=== PATIENT | female | born 1990 | race Caucasian/White ===

== ENCOUNTER 2017-07-04 20:47 | Emergency (ER) | payer OTHER ==
[~2017-07-04] VITALS: Ht 170.2 cm; Wt 81.7 kg
[~2017-07-04 20:47] MED LIST: ACETAMINOPHEN-1 EAC1 PO; CEPHALEXIN500 MG PO; CLINDAMYCIN HC300 MG PO; IBUPROFEN800 MG PO; NAPROXEN500 MG PO; NORCO 5-325 TA1 EACH PO; PENICILLIN V P500 MG PO; PEPCID40 MG PO; PERCOCET 5-3251 EACH PO; PHENDIMETRAZIN105 MG PO; TRAZODONE HCL100 MG PO; VICODIN 5-3001 EACH PO; VITAFOL-OB+DHA1 EACH PO; WELLBUTRIN XL300 MG PO; ZOLOFT100 MG PO
[2017-07-04] MEDS ORDERED: DOXYCYCLINE HY100 MG PO (23:15)
== END 2017-07-04 23:33 | disposition home or self-care (01) ==
LOC: ED 20:47
DX: R51 Headache (principal); F41.9 Anxiety disorder, unspecified; F32.9 Major depressive disorder, single episode, unspecified; Z86.19 Personal history of other infectious and parasitic diseases; Z90.89 Acquired absence of other organs
CPT/HCPCS: 70450; 80053; 81001; 85025; 96372; 99284; J1885

== ENCOUNTER 2017-12-12 20:45 | Emergency (ER) | payer OTHER ==
[~2017-12-12] VITALS: Ht 170.2 cm; Wt 81.7 kg
--- OUTSIDE RECORDS SUMMARY | ~2017-12-12 | XMS | Encounter Summary ---
Demographics + + + | Address | [address] | | | [place] [address] | + + + | Home Phone | | + + + | Preferred Language | Unknown | + + + | Marital Status | | + + + | Tenriism Affiliation | Unknown | + + + | Race | White | + + + | Ethnic Group | Not or | + + + Author + + + | Author | [facility] | + + + | Organization | [facility] | + + + | Address | Unknown | + + + | Phone | Unavailable | + + + Support + + +---------+ + | Name | Relationship | Address | Phone | + + +---------+ + | Ortiz Laura | ECON | Unknown | | + + +---------+ + Care Team Providers + +------+ + | Care Tank Car Repairer Name | Role | Phone | + +------+ + | Donald Smith DO | PCP | | + +------+ + Encounter Details +--------+------+ + + + | Date | Type | Department | Care Team | Description | +--------+------+ + + + | 10/28/ | Lab | Laboratory, | | Chronic hepatitis C | | 2018 | | Specimen Collection | | without hepatic coma | | | | at [facility] 3rd Floor | | (HCC) | | | | [address] | | | | | | [facility] | | | | | | [place], [place] | | | | | | [address] | | | | | | [phone] | | | +--------+------+ + + + Social History + + + +--------+------+ | Tobacco Use | Types | Packs/Day | Years | Date | | | | | Used | | + + + +--------+------+ | Current Every Day | E-cigarettes | | | | | Smoker | | | | | + + + +--------+------+ + +---+---+---+ | Smokeless Tobacco: | | | | | Never Used | | | | + +---+---+---+ + + + | Sex Assigned at | Date Recorded | | | | + + + | Not on file | | + + + as of this encounter Plan of Treatment +--------+---------+ + + + | Date | Type | Specialty | Care Team | Description | +--------+---------+ + + + | 01/27/ | Office | Rheumatology | Sissy Peñaloza, | | | 2017 | Visit | | [facility] [address] [facility] | | | | | | [address] | | | | | | [place], [place] | | | | | | [address] | | | | | | [phone] | | | | | | | | +--------+---------+ + + + as of this encounter Results CBC AND AUTO DIFF (10/28/2017 9:40 AM) + + + + | Component | Value | Ref Range | + + + + | WHITE CELL COUNT | 4.22 | 3.50 - 10.80 K/cu mm | + + + + | RED CELL COUNT | 4.47 | 4.00 - 5.20 M/cu mm | + + + + | HEMOGLOBIN | 13.5 | 12.0 - 16.0 g/dL | + + + + | HEMATOCRIT | 39.6 | 36.0 - 46.0 % | + + + + | MCV | 88.6 | 80.0 - 96.0 fL | + + + + | MCHC | 34.1 | 33.0 - 35.5 g/dL | + + + + | RDW SD | 41.0 | 35.1 - 46.3 fL | + + + + | PLATELET COUNT | 147 (L) | 150 - 400 K/cu mm | + + + + | MPV | 11.4 | 9.7 - 12.3 fL | + + + + | NRBC% | 0.0 | 0.0 - 0.3 % | + + + + | NRBC# | 0.00 | 0.00 - 0.02 K/cu mm | + + + + | NEUTROPHIL % | 53.8 | 50.0 - 70.0 % | + + + + | LYMPHOCYTE % | 26.8 | 18.0 - 42.0 % | + + + + | MONOCYTE % | 12.3 (H) | 3.5 - 9.0 % | + + + + | EOS % | 6.2 (H) | 1.0 - 3.0 % | + + + + | BASO % | 0.7 | 0.0 - 2.0 % | + + + + | IG% | 0.2Comment: Increased immature granulocytes | 0.0 - 1.0 % | | | (IG) define a left shift. Immature | | | | granulocytes (IG) are an automated count of | | | | metamyelocytes, myelocytes and | | | | promyelocytes. Bands are not included in | | | | the IG count. Bands are included in the | | | | neutrophil count. | | + + + + | NEUTROPHIL # | 2.27 | 1.80 - 7.70 K/cu mm | + + + + | LYMPHOCYTE # | 1.13 | 1.00 - 4.80 K/cu mm | + + + + | MONOCYTE # | 0.52 | 0.10 - 0.90 K/cu mm | + + + + | EOS # | 0.26 | 0.00 - 0.50 K/cu mm | + + + + | BASO # | 0.03 | 0.00 - 0.10 K/cu mm | + + + + | IG# | 0.01 | 0.00 - 0.10 K/cu mm | + + + + + + + | Specimen | Performing Laboratory | + + + | Blood | [facility], CORE [address] [facility] | | | [place] [address] | + + + + + | Narrative | + + | New reference ranges for IG% and IG# effective 10/10/2017. Increased immature | | granulocytes (IG) define a left shift. Immature granulocytes (IG) are an automated count | | of metamyelocytes, myelocytes and promyelocytes. Bands are not included in the IG | | count. Bands are included in the neutrophil count. | + + SEDIMENTATION RATE (10/28/2017 9:40 AM) + +-------+ + | Component | Value | Ref Range | + +-------+ + | SEDIMENTATION RATE | 10 | 0 - 20 mm/hr | + +-------+ + + + + | Specimen | Performing Laboratory | + + + | Blood | [facility], CORE [address] [place] [address] | | | [place] [address] | + + + + + | Narrative | + + | Conditions such as cold agglutinins, anemia, hemolysis, icterus or lipemia may affect | | sedimentation rate. | + + COMPLETE METABOLIC SET (NA,K,CL,CO2,BUN,CREAT,GLUC,CA,AST,ALT,BILI TOTAL,ALK PHOS,ALB,PROT TOTAL) (10/28/2017 9:40 AM) + +---------+ + | Component | Value | Ref Range | + +---------+ + | GLUCOSE, PLASMA | 89 | 70 - 99 mg/dL | | (LAB) | | | + +---------+ + | BUN, PLASMA (LAB) | 16 | 6 - 20 mg/dL | + +---------+ + | CREATININE PLASMA | 0.73 | 0.60 - 1.10 mg/dL | | (LAB) | | | + +---------+ + | EGFR - | >60 | >60 mL/min | | [place] | | | + +---------+ + | EGFR NON | >60 | >60 mL/min | | -[place] | | | + +---------+ + | SODIUM, PLASMA (LAB) | 139 | 136 - 145 mmol/L | + +---------+ + | POTASSIUM, PLASMA | 3.9 | 3.4 - 5.0 mmol/L | | (LAB) | | | + +---------+ + | CHLORIDE, PLASMA | 107 | 97 - 108 mmol/L | | (LAB) | | | + +---------+ + | TOTAL CO2, PLASMA | 23 | 21 - 32 mmol/L | | (LAB) | | | + +---------+ + | CALCIUM, PLASMA | 8.6 | 8.6 - 10.2 mg/dL | | (LAB) | | | + +---------+ + | CALCIUM(ALB | 8.8 | 8.6 - 10.2 mg/dL | | CORRECTED) | | | + +---------+ + | BILIRUBIN TOTAL | 0.4 | 0.3 - 1.2 mg/dL | + +---------+ + | TOTAL PROTEIN, | 7.6 | 6.4 - 8.2 g/dL | | PLASMA (LAB) | | | + +---------+ + | ALBUMIN, PLASMA | 3.8 | 3.5 - 4.7 g/dL | | (LAB) | | | + +---------+ + | ALK PHOS | 46 | 42 - 98 U/L | + +---------+ + | AST(SGOT) | 14 | <=41 U/L | + +---------+ + | ALT (SGPT) | 20 | <=60 U/L | + +---------+ + | ANION GAP | 9 | 4 - 11 mmol/L | + +---------+ + | ANION GAP(ALB | 9 | 4 - 11 mmol/L | | CORRECTED) | | | + +---------+ + | POTASSIUM CMNT | No Hemo | | + +---------+ + | BILI T CMNT | No Hemo | | + +---------+ + | AST CMNT | No Hemo | | + +---------+ + + + + | Specimen | Performing Laboratory | + + + | Blood | [facility], [facility] [address] | | | [place] [address] | + + + + + | Narrative | + + | Adult glucose reference range change effective 7-12-17. GFR is estimated using the | | MDRD equation recommended by the National Kidney Disease Education Program. | | Estimated GFR Interpretive Information: <60 mL/min/1.73 sq | | m Chronic Kidney Disease <15 mL/min/1.73 sq | | m Kidney Failure Estimated GFR greater that 60 mL/min/1.73 | | sq m is of limited clinical value. The MDRD equation is not valid in the following | | situations: - Patients under 18 years of age - Severe malnutrition or obesity - | | Vegetarian diet - Rapidly changing kidney function | + + CBC, WITH DIFFERENTIAL (10/28/2017 9:40 AM) + + + | Specimen | Performing Laboratory | + + + | Blood | | + + + + + | Narrative | + + | The following orders were created for panel order CBC, WITH DIFFERENTIAL. | | Procedure | | Abnormality Status | | --------- | | ------ CBC AND AUTO | | DIFF[[id number]] Abnormal Final | | result Please view results for these tests on the | | individual orders. | + + in this encounter Visit Diagnoses + + | Diagnosis | + + | Chronic hepatitis C without hepatic coma (HCC) | + +"
--- OUTSIDE RECORDS SUMMARY | ~2017-12-12 | XMS | Encounter Summary ---
Demographics + + + | Address | [address] | | | [place] [address] | + + + | Home Phone | | + + + | Preferred Language | Unknown | + + + | Marital Status | | + + + | Taoism Affiliation | Unknown | + + + | Race | White | + + + | Ethnic Group | Not or | + + + Author + + + | Author | [facility] | + + + | Organization | [facility] | + + + | Address | Unknown | + + + | Phone | Unavailable | + + + Support + + +---------+ + | Name | Relationship | Address | Phone | + + +---------+ + | Ortiz Laura | ECON | Unknown | | + + +---------+ + Care Team Providers + +------+ + | Care Glass Enamel Mixer Name | Role | Phone | + +------+ + | Donald Smith DO | PCP | | + +------+ + Reason for Visit + + + | Reason | Comments | + + + | Follow-up visit | | + + + Benefits Check (Routine) + +--------+ + + + + | Status | Reason | Specialty | Diagnoses / | Referred By | Referred To | | | | | Procedures | Contact | Contact | + +--------+ + + + + | Pending | | Rheumatology | Procedures | Rhm | Rhm Faculty | | Review | | | [place] | Faculty Ppv | Ppv [address] | | | | | OFFICE/OUTPT | [address] | | | | | | [address] | [address] | | | | | VISIT[place] | [address] | Mailcode: | | | | | [place] | Mailcode: | OP09 | | | | | OFFICE/OUTPT | OP09 | Physicians | | | | | | Physicians | Pavilion, 4th | | | | | VISIT,EST,LE | Pavilion, | Floor | | | | | VL IV | 4th Floor | [place], [place] | | | | | | [place], [place] | [address] | | | | | | [address] | Phone: | | | | | | Phone: | [phone] | | | | | | [phone] | Fax: | | | | | | Fax: | [phone] | | | | | | [phone] | | + +--------+ + + + + Encounter Details +--------+---------+ + + + | Date | Type | Department | Care Team | Description | +--------+---------+ + + + | 10/28/ | Office | Rheumatology at | Sissy Peñaloza, | Chronic hepatitis C | | 2018 | Visit | [facility] [address] | [facility] [address] | without hepatic coma | | | | [facility] [address] | [facility] [address] | (HCC) | | | | Mailcode: [id number] | [place], [place] | | | | | [facility] [address] | [address] | | | | | [place], [place] | [phone] | | | | | [address] | | | | | | [phone] | | | +--------+---------+ + + + Social History + + [...] + + + as of this encounter Last Filed Vital Signs + + + + | Vital Sign | Reading | Time Taken | + + + + | Blood Pressure | 124/67 | 10/28/2017 9:07 AM PST | + + + + | Pulse | 78 | 10/28/2017 9:07 AM PST | + + + + | Temperature | - | - | + + + + | Respiratory Rate | - | - | + + + + | Oxygen Saturation | - | - | + + + + | Inhaled Oxygen | - | - | | Concentration | | | + + + + | Weight | 81.6 kg (180 lb) | 10/28/2017 9:07 AM PST | + + + + | Height | 170.2 cm (5' 7") | 10/28/2017 9:07 AM PST | + + + + | Body Mass Index | 28.19 | 10/28/2017 9:07 AM PST | + + + + in this encounter Progress Notes Sunshine Lopez MD - 10/28/2017 9:00 AM PSTI have evaluated the patient with Dr Peñaloza and agree with the history, findings, assessment and plan. Sunshine Lopez M.D. [address] [facility] Mailcode: [id number] [facility] [address] Sissy Peñaloza MBBS - 10/28/2017 9:00 AM PSTFormatting of this note may be different fro m the original. RHEUMATOLOGY FOLLOW UP CC: Polyarthritis: Hep C related. RF/CCP negative. HPI: This is a 27 y.o. female, here for follow up for hepatitis C and polyarthritis. Here morning stiffness and swelling are better after starting HCQ and naproxen. She can now make a fist in morning and feels much better. Although still has residual swelling. No fevers, chills, nausea, vomiting or diarrhea. ROS: General: No constitutional symptoms of fatigue, weakness, fevers, night sweats. Eyes: No changes in visual acuity, diplopia or amaurosis, no discharge, matting, redness, tearing or eye pain. Ears/Nose/Throat: No sore throat, dental pain, hoarseness, dysphagia, oral or tongue lesio ns. No history of hearing loss, ear pain, tinnitus or aural discharge. CVS: No chest pain, leg swelling, or palpitations. Respiratory: No shortness of breath, cough, or pain with breathing. Gastrointestinal: No abdominal or flank pain, anorexia, nausea or vomiting, dysphagia, angela nge in bowel habits or black or bloody stools or weight loss. Neurologic: No symptoms of neurological impairment or TIAs; no amaurosis, diplopia, dysphas ia, or unilateral disturbance of motor or sensory function. No loss of balance or vertigo. Heme/Lymphatic: No abnormal bruising, abnormal bleeding or enlarged lymph nodes. Skin: No rash. PMH: IV drug abuse, migraine, smoking, depression, opioid dependence Meds: Current Outpatient Prescriptions Medication Sig hydroxychloroquine 200 mg oral tablet Take 1.5 tablets by mouth once daily. naproxen 500 mg oral tablet Take 0.5 tablets by mouth two times daily. Indications: Tremayne n No current facility-administered medications for this visit. Allergies: Review of patient's allergies indicates not on file. Social History: Samantha reports that she has been smoking E-cigarettes. She has never use d smokeless tobacco. Vaccinations: There is no immunization history on file for this patient. FH: Father has psoriasis Rapid 3 MHAQ: 0 (10/28/17899) PAIN LEVEL: 4.5 (10/28/17899) GLOBAL ASSESSMENT: 4.5 (10/28/17899) RAPID 3: 3 (10/28/17899) Exam: Vital Signs: BP 124/67 | Pulse 78 | Ht 1.702 m (5' 7") | Wt 81.6 kg (180 lb) | BMI 28 .19 kg/(m^2) Pain Score: 8 Gen: Well nourished, well developed, in NAD HEENT: unremarkable Neck: no lymphadenopathy, FROM Lungs: clear to ausculations bilaterally CVS: S1, S2 RRR, no murmurs, rubs or gallops Abd: normal BS, soft, NT, ND Ext: No clubbing, cyanosis, or edema M/S: Right hand: 2nd /3rd PIP synovitis, ROM normal. Left hand: 2nd PIP synovitis, ROM normal. Left shoulder/elbow/feet: GH joint normal. Right shoulder/elbow/feet: normal. Skin: No ulcers, no periungual erythema Neuro: normal DAS28: Today Samantha's DAS28 assessment revealed a total of 3 tender and 3 swollen joints coupled with a recent ESR value of 10 mm/hr and a global health value of 45 mm. Based upon these da ta, Samantha's DAS28 was calculated as 3.7 (on a scale of 0-10). Therefore, her overall dise ase activity level is considered to be Moderate. Labs: Lab Results Component Value Date WBC 4.22 10/28/2017 HB 13.5 10/28/2017 HCT 39.6 10/28/2017 PLT 147 10/28/2017 MCV 88.6 10/28/2017 RDW 41.0 10/28/2017 Lab Results Component Value Date NA 139 10/28/2017 K 3.9 10/28/2017 CL 107 10/28/2017 BICARB 23 10/28/2017 BUN 16 10/28/2017 CR 0.73 10/28/2017 GLU 89 10/28/2017 CA 8.6 10/28/2017 AST 14 10/28/2017 ALT 20 10/28/2017 AP 46 10/28/2017 TBILI 0.4 10/28/2017 TP 7.6 10/28/2017 ALB 3.8 10/28/2017 ANIONGAP 9 10/28/2017 ANIONALBCOR 9 10/28/2017 Lab Results Component Value Date ESR 10 10/28/2017 Impression: This is a 27 y.o. female, here for evaluation of polyarthritis with a past [facility] history of chronic hepatitis C. Fells better after starting HCQ and naproxen. Continues to have morning stiffness for 1 hour and swelling of small joints in AM. Night pain has redu gabrielle. DAS28: Today Samantha's DAS28 assessment revealed a total of 3 tender and 3 swollen joints coupled with a recent ESR value of 10 mm/hr and a global health value of 45 mm. Based upon these da ta, Samantha's DAS28 was calculated as 3.7 (on a scale of 0-10). Therefore, her overall dise ase activity level is considered to be Moderate. Today she does have swelling in her PIP joints and so will increase dose of HCQ to 300 mg a day. Patient will get baseline eye exam. Will continue naproxen as needed. Will repeat labs today. I reviewed the patient s questionnaire which included more than 10 review of systems, ans wered all questions raised, and provided counseling and education. Recommendations: Labs: CBC, CMP, ESR today I will continue the patient on naproxen 500 mg twice a day (can take full dose or decrease if feels good) and increase plaquenil to 300 mg a day once a day for HCV arthritis See me back in 3 months. Case discussed and seen with Dr. Lopez who agrees with the plan. Plan discussed with primary team and patient - we answered all questions and concerns. JESSICA Dallas RHEUMATOLOGY AT [address] Mailcode: [id number] [place] [address] in this encounter Plan of Treatment +--------+---------+ + + + | Date | Type | Specialty | Care Team | Description | +--------+---------+ + + + | 01/27/ | Office | Rheumatology | Sissy Peñaloza, | | | 2017 | Visit | | [facility] [address] [facility] | | | | | | [address] | | | | | | [place], [place] | | | | | | [address] | | | | | | [phone] | | | | | | | | +--------+---------+ + + + as of this encounter Results SEDIMENTATION RATE (10/28/2017 9:40 AM) + +-------+ + | Component | Value | Ref Range | + +-------+ + | SEDIMENTATION RATE | 10 | 0 - 20 mm/hr | + +-------+ + + + + | Specimen | Performing Laboratory | + + + | Blood | [facility], CORE [address] [facility] | | | [place] [address] | + + + + + | [...] | >60 | >60 mL/min | | [place] | | | + +---------+ + | EGFR NON | >60 | >60 mL/min | | -[place] | | | + +---------+ + | [...] | + + + | Blood | [facility], [facility] [address] [facility] | | | [place] [address] | + + + + + | [...] | ------ CBC AND AUTO | | DIFF[[id number]] Abnormal Final | | result Please view results for these tests on the | | individual orders. | + + in this encounter Visit Diagnoses + + | Diagnosis | + + | Chronic hepatitis C without hepatic coma (HCC) | + +
--- OUTSIDE RECORDS SUMMARY | ~2017-12-12 | XMS | Encounter Summary ---
Demographics + + + | Address | [address] | | | [place] [address] | + + + | Home Phone | | + + + | Preferred Language | Unknown | + + + | Marital Status | | + + + | Gnosticism Affiliation | Unknown | + + + | Race | White | + + + | Ethnic Group | Not or | + + + Author + + + | Author | [facility] | + + + | Organization | [facility] | + + + | Address | Unknown | + + + | Phone | Unavailable | + + + Support + + +---------+ + | Name | Relationship | Address | Phone | + + +---------+ + | Ortiz Laura | ECON | Unknown | | + + +---------+ + Care Team Providers + +------+ + | Care Message And Delivery Service Pricer Name | Role | Phone | + [...] Faculty | | Review | | | [place] | Faculty Ppv | Ppv [address] | | | | | OFFICE/OUTPT | [address] | | | | | | [address] | [address] | | | | | VISIT,EST,[place] | [address] | Mailcode: | | | | | [place] | Mailcode: | OP09 | | | | | OFFICE/OUTPT | OP09 | Physicians | | | | | | Physicians | Pavilion, 4th | | | | | VISIT,EST,LE | Pavilion, | Floor | | | | | VL IV | 4th Floor | [place], [place] | | | | | | [place], [place] | [address] | | | | | | [address] | Phone: | | | | | | Phone: | [phone] | | | | | | [phone] | Fax: | | | | | | Fax: | [phone] | | | | | | [phone] | | + +--------+ + + + [...] without hepatic coma | | | | [facility] [address] | [facility] [address] | (HCC) | | | | Mailcode: [id number] | [place], [place] | | | | | [facility] [address] | [address] | | | | | [place], [place] | [phone] | | | | | [address] | | | | | | [phone] | | | +--------+---------+ + + + [...] findings, assessment and plan. Sunshine Lopez M.D. [address] [facility] Mailcode: [id number] [facility] [address] Sissy Peñaloza MBBS - 10/28/2017 9:00 AM [...] for evaluation of polyarthritis with a past [facility] history of chronic hepatitis C. Fells better [...] questions and concerns. JESSICA Dallas RHEUMATOLOGY AT [address] Mailcode: [id number] [place] [address] in this encounter Plan of Treatment +--------+---------+ + + + | Date | Type | Specialty | Care Team | Description | +--------+---------+ + + + | 01/27/ | Office | Rheumatology | Sissy Peñaloza, | | | 2017 | Visit | | [facility] [address] [facility] | | | | | | [address] | | | | | | [place], [place] | | | | | | [address] | | | | | | [phone] | | | | | | | [...] | + + + | Blood | [facility], CORE [address] [facility] [address] | | | [place] [address] | + + + + + | [...] | >60 | >60 mL/min | | [place] | | | + +---------+ + | EGFR NON | >60 | >60 mL/min | | -[place] | | | + +---------+ + | [...] | + + + | Blood | [facility], [facility] [address] | | | [place] [address] | + + + + + | [...] | ------ CBC AND AUTO | | DIFF[[id number]] Abnormal Final | | result Please view results for these tests on the | | individual orders. | + + in this encounter Visit Diagnoses + + | Diagnosis | + + | Chronic hepatitis C without hepatic coma (HCC) | + +
--- OUTSIDE RECORDS SUMMARY | ~2017-12-12 | XMS | Clinical Summary ---
Demographics + + + | Address | [address] | | | [place] [address] | + + + | Home Phone | | + + + | Preferred Language | Unknown | + + + | Marital Status | | + + + | Caodaism Affiliation | Unknown | + + + | Race | White | + + + | Ethnic Group | Not or | + + + Author + + + | Author | [facility] | + + + | Organization | [facility] | + + + | Address | Unknown | + + + | Phone | Unavailable | + + + Support + + +---------+ + | Name | Relationship | Address | Phone | + + +---------+ + | Ortiz Laura | ECON | Unknown | | + + +---------+ + Care Team Providers + +------+ + | Care Receptionist Name | Role | Phone | + +------+ + | Donald Smith DO | PP | | + +------+ + Source Comments ERIC is fully live on both [facility] and [facility] Allergies Not on File Current Medications + + +--------+---------+------+------+-------+ | Prescription | Sig. | Disp. | Refills | Star | End | Statu | | | | | | t | Date | s | | | | | | Date | | | + + +--------+---------+------+------+-------+ | hydroxychloroquine | Take 1.5 tablets by | 45 | 5 | 02/0 | | Activ | | 200 mg oral | mouth once daily. | tablet | | 820 | | e | | tabletIndications: | | | | 18 | | | | Chronic hepatitis C | | | | | | | | without hepatic coma | | | | | | | | (HCC) | | | | | | | + + +--------+---------+------+------+-------+ | naproxen 500 mg | Take 0.5 tablets by | 30 | 2 | 02/0 | | Activ | | oral | mouth two times | tablet | | 8/20 | | e | | tabletIndications: | daily. Indications: | | | 18 | | | | Pain | Pain | | | | | | + + +--------+---------+------+------+-------+ Active Problems Not on file Encounters +--------+---------+ + + + | Date | Type | Specialty | Care Team | Description | +--------+---------+ + + + | 10/28/ | Lab | | | Chronic hepatitis C | | 2018 | | | | without hepatic coma | | | | | | (HCC) | +--------+---------+ + + + | 10/28/ | Office | | Sissy Peñaloza, | Chronic hepatitis C | | 2018 | Visit | | [facility] | without hepatic coma | | | | | | (HCC) | +--------+---------+ + + + from Last 3 Months Social History + + + +--------+------+ | [...] on file | | + + + Last Filed Vital Signs + + + [...] AM PST | + + + + Plan of Treatment +--------+---------+ + + + | Date | Type | Specialty | Care Team | Description | +--------+---------+ + + + | 01/27/ | Office | | Sissy Peñaloza, | | | 2018 | Visit | | [facility] [address] [facility] | | | | | | [address] | | | | | | [place], [place] | | | | | | [address] | | | | | | [phone] | | | | | | | | +--------+---------+ + + + + + + + + | Health Maintenance | Due Date | Last Done | Comments | + + + + + | INFLUENZA VACCINE | | 06/30/2016, 07/02/2014, | | | (FLU SHOT) | 7 | 06/18/2009, Additional history | | | | | exists | | + + + + + Results CBC AND AUTO DIFF (10/28/2017 9:40 [...] | + + + | Blood | [facility], CORE [address] [place] [address] | | | [facility] [address] | + + + + + | [...] in the neutrophil count. | + + CBC, WITH DIFFERENTIAL (10/28/2017 [...] | ------ CBC AND AUTO | | DIFF[[id number]] Abnormal Final | | result Please view results for these tests on the | | individual orders. | + + COMPLETE METABOLIC SET (NA,K,CL,CO2,BUN,CREAT,GLUC,CA,AST,ALT,BILI [...] | >60 | >60 mL/min | | [place] | | | + +---------+ + | EGFR NON | >60 | >60 mL/min | | -[place] | | | + +---------+ + | [...] | + + + | Blood | [facility] [address] | | | [place] [address] | + + + + + | [...] Rapidly changing kidney function | + + SEDIMENTATION RATE (10/28/2017 9:40 AM) + +-------+ + | Component | Value | Ref Range | + +-------+ + | SEDIMENTATION RATE | 10 | 0 - 20 mm/hr | + +-------+ + + + + | Specimen | Performing Laboratory | + + + | Blood | [facility], CORE [address] | | | [place] [address] | + + + + + | Narrative | + + | Conditions such as cold agglutinins, anemia, hemolysis, icterus or lipemia may affect | | sedimentation rate. | + + from Last 3 Months
--- OUTSIDE RECORDS SUMMARY | ~2017-12-12 | XMS | Encounter Summary ---
Demographics + + + | Address | [address] | | | [place] [address] | + + + | Home Phone | | + + + | Preferred Language | Unknown | + + + | Marital Status | | + + + | Episcopal Affiliation | Unknown | + + + | Race | White | + + + | Ethnic Group | Not or | + + + Author + + + | Author | [facility] | + + + | Organization | [facility] | + + + | Address | Unknown | + + + | Phone | Unavailable | + + + Support + + +---------+ + | Name | Relationship | Address | Phone | + + +---------+ + | Ortiz Laura | ECON | Unknown | | + + +---------+ + Care Team Providers + +------+ + | Care Employee Representative Name | Role | Phone | + [...] hepatic coma | | | | at [facility] 3rd Floor | | (HCC) | | | | [address] | | | | | | [facility] | | | | | | [place], [place] | | | | | | [address] | | | | | | [phone] | | | +--------+------+ + + + [...] 2017 | Visit | | [facility] [address] [facility] | | | | | | [address] | | | | | | [place], [place] | | | | | | [address] | | | | | | [phone] | | | | | | | [...] | + + + | Blood | [facility], CORE [address] [facility] | | | [place] [address] | + + + + + | [...] | + + + | Blood | [facility], CORE [address] [place] [address] | | | [place] [address] | + + + + + | [...] | >60 | >60 mL/min | | [place] | | | + +---------+ + | EGFR NON | >60 | >60 mL/min | | -[place]APORE[place] | | | + +---------+ + | [...] | + + + | Blood | [facility] [address] | | | [place] [address] | + + + + + | [...] | ------ CBC AND AUTO | | DIFF[[id number]] Abnormal Final | | result Please view results for these tests on the | | individual orders. | + + in this encounter Visit Diagnoses + + | Diagnosis | + + | Chronic hepatitis C without hepatic coma (HCC) | + +"
--- OUTSIDE RECORDS SUMMARY | ~2017-12-12 | XMS | Clinical Summary ---
Demographics + + + | Address | [address] | | | [place] [address] | + + + | Home Phone | | + + + | Preferred Language | Unknown | + + + | Marital Status | | + + + | Moravian Affiliation | Unknown | + + + | Race | White | + + + | Ethnic Group | Not or | + + + Author + + + | Author | [facility] | + + + | Organization | [facility] | + + + | Address | Unknown | + + + | Phone | Unavailable | + + + Support + + +---------+ + | Name | Relationship | Address | Phone | + + +---------+ + | Ortiz Laura | ECON | Unknown | | + + +---------+ + Care Team Providers + +------+ + | Care Medical Management Trainer Name | Role | Phone | + +------+ + | Donald Smith DO | PP | | + +------+ + Source Comments [facility] and [facility] Allergies Not on File Current [...] 2018 | Visit | | [facility] [address] [facility] | | | | | | [address] | | | | | | [place], [place] | | | | | | [address] | | | | | | [phone] | | | | | | | [...] | + + + | Blood | [facility], CORE [address] [place] [address] | | | [facility] [address] | + + + + + | [...] | ------ CBC AND AUTO | | DIFF[[id number]] Abnormal Final | | result Please view [...] | >60 | >60 mL/min | | [place] | | | + +---------+ + | EGFR NON | >60 | >60 mL/min | | -[place] | | | + +---------+ + | [...] | + + + | Blood | [facility] [address] | | | [place] [address] | + + + + + | [...] | + + + | Blood | [facility], CORE [address] | | | [place] [address] | + + + + + | Narrative | + + | Conditions such as cold agglutinins, anemia, hemolysis, icterus or lipemia may affect | | sedimentation rate. | + + from Last 3 Months
[~2017-12-12 20:45] MED LIST changes: +DOXYCYCLINE HY100 MG PO
== END 2017-12-12 22:39 | disposition home or self-care (01) ==
LOC: ED 20:45
DX: R51 Headache (principal); F41.9 Anxiety disorder, unspecified; F32.9 Major depressive disorder, single episode, unspecified
CPT/HCPCS: 87502; 96374; 96375; 99283; J1200; J1885; J2765; J7030

== ENCOUNTER 2020-05-28 00:46 | Emergency (ER) | payer OTHER ==
[~2020-05-28] VITALS: Ht 170.2 cm; Wt 89.8 kg
--- OUTSIDE RECORDS SUMMARY | ~2020-05-28 | XMS | Encounter Summary ---
Demographics + + + | Address | [address] | | | [place] [address] | + + + | Home Phone | | + + + | Preferred Language | Unknown | + + + | Marital Status | | + + + | Sikh Affiliation | Unknown | + + + [...] Team Providers + +------+ + | Care Vending Machine Filler Name | Role | Phone | + +------+ + | Donald Smith DO | PCP | | + +------+ + Encounter Details +--------+------+ + + + | Date | Type | Department | Care Team | Description | +--------+------+ + + + | 07/22/ | Lab | Laboratory at [facility] | | Chronic hepatitis C | | 2017 | | [address] | | without hepatic coma | | | | [facility] | | (HCC) | | | | [place], 3rd floor | | | | | | [place], [place] | | | | | | [address] | | | | | | [phone] | | | +--------+------+ + + + [...] on file | | + + + documented as of this encounter Plan of Treatment Not on filedocumented as of this encounter Procedures + +--------+ + + + | Procedure Name | Priori | Date/Time | Associated Diagnosis | Comments | | | ty | | | | + +--------+ + + + | HEPATITIS B SURFACE | Routin | 07/22/2017 | Chronic hepatitis | Results for this | | AG W/REFLEX IF | e | 12:49 PM | C without hepatic | procedure are in the | | INDICATED | | PDT | coma (HCC) | results section. | + +--------+ + + + | CBC AND AUTO DIFF | Routin | 07/22/2017 | Chronic hepatitis | Results for this | | | e | 12:49 PM | C without hepatic | procedure are in the | | | | PDT | coma (HCC) | results section. | + +--------+ + + + | CBC, WITH | Routin | 07/22/2017 | Chronic hepatitis | Results for this | | DIFFERENTIAL | e | 12:49 PM | C without hepatic | procedure are in the | | | | PDT | coma (HCC) | results section. | + +--------+ + + + | COMPLETE METABOLIC | Routin | 07/22/2017 | Chronic hepatitis | Results for this | | SET | e | 12:49 PM | C without hepatic | procedure are in the | | (NA,K,CL,CO2,BUN,CRE | | PDT | coma (HCC) | results section. | | AT,GLUC,CA,AST,ALT,B | | | | | | RIVKA TOTAL,ALK | | | | | | PHOS,ALB,PROT TOTAL) | | | | | + +--------+ + + + | CYCLIC CITRUL | Routin | 07/22/2017 | Chronic hepatitis | Results for this | | PEPTIDE AB IGG, | e | 12:49 PM | C without hepatic | procedure are in the | | SERUM | | PDT | coma (HCC) | results section. | + +--------+ + + + | HIV AB/AG SCREENING | Routin | 07/22/2017 | Chronic hepatitis | Results for this | | W/REFLEX TO CONFIRM | e | 12:49 PM | C without hepatic | procedure are in the | | | | PDT | coma (HCC) | results section. | + +--------+ + + + documented in this encounter Results CBC AND AUTO DIFF (07/22/2017 12:49 PM PDT) + + + + + + | Component | Value | Ref Range | Performed | Pathologist | | | | | At | Signature | + + + + + + | WHITE CELL | 3.57 | 3.50 - 10.80 | [facility] | | | COUNT | | K/cu mm | LABORATORY | | | | | | SERVICES, | | | | | | CORE | | + + + + + + | RED CELL | 4.63 | 4.00 - 5.20 | [facility] | | | COUNT | | M/cu mm | LABORATORY | | | | | | SERVICES, | | | | | | CORE | | + + + + + + | HEMOGLOBIN | 14.0 | 12.0 - 16.0 | [facility] | | | | | g/dL | LABORATORY | | | | | | SERVICES, | | | | | | CORE | | + + + + + + | HEMATOCRIT | 41.0 | 36.0 - 46.0 % | [facility] | | | | | | LABORATORY | | | | | | SERVICES, | | | | | | CORE | | + + + + + + | MCV | 88.6 | 80.0 - 96.0 fL | [facility] | | | | | | LABORATORY | | | | | | SERVICES, | | | | | | CORE | | + + + + + + | MCHC | 34.1 | 33.0 - 35.5 | [facility] | | | | | g/dL | LABORATORY | | | | | | SERVICES, | | | | | | CORE | | + + + + + + | RDW SD | 42.3 | 35.1 - 46.3 fL | [facility] | | | | | | LABORATORY | | | | | | SERVICES, | | | | | | CORE | | + + + + + + | PLATELET | 135 (L) | 150 - 400 K/cu | [facility] | | | COUNT | | mm | LABORATORY | | | | | | SERVICES, | | | | | | CORE | | + + + + + + | MPV | 11.5 | 9.7 - 12.3 fL | [facility] | | | | | | LABORATORY | | | | | | SERVICES, | | | | | | CORE | | + + + + + + | NRBC% | 0.0 | 0.0 - 0.3 % | [facility] | | | | | | LABORATORY | | | | | | SERVICES, | | | | | | CORE | | + + + + + + | NRBC# | 0.00 | 0.00 - 0.02 | [facility] | | | | | K/cu mm | LABORATORY | | | | | | SERVICES, | | | | | | CORE | | + + + + + + | NEUTROPHIL | 52.6 | 50.0 - 70.0 % | [facility] | | | % | | | LABORATORY | | | | | | SERVICES, | | | | | | CORE | | + + + + + + | LYMPHOCYTE | 31.7 | 18.0 - 42.0 % | [facility] | | | % | | | LABORATORY | | | | | | SERVICES, | | | | | | CORE | | + + + + + + | MONOCYTE % | 9.8 (H) | 3.5 - 9.0 % | [facility] | | | | | | LABORATORY | | | | | | SERVICES, | | | | | | CORE | | + + + + + + | EOS % | 5.0 (H) | 1.0 - 3.0 % | [facility] | | | | | | LABORATORY | | | | | | SERVICES, | | | | | | CORE | | + + + + + + | BASO % | 0.6 | 0.0 - 2.0 % | [facility] | | | | | | LABORATORY | | | | | | SERVICES, | | | | | | CORE | | + + + + + + | IG% | 0.3Comment: Immature | 0.0 - 0.6 % | [facility] | | | | Granulocytes (IG) | | LABORATORY | | | | include metamyelocytes, | | SERVICES, | | | | myelocytes and | | CORE | | | | promyelocytes. Bands | | | | | | are not included in the | | | | | | IG count. Bands are | | | | | | included in the | | | | | | neutrophil count. | | | | + + + + + + | NEUTROPHIL | 1.88 | 1.80 - 7.70 | [facility] | | | # | | K/cu mm | LABORATORY | | | | | | SERVICES, | | | | | | CORE | | + + + + + + | LYMPHOCYTE | 1.13 | 1.00 - 4.80 | [facility] | | | # | | K/cu mm | LABORATORY | | | | | | SERVICES, | | | | | | CORE | | + + + + + + | MONOCYTE # | 0.35 | 0.10 - 0.90 | [facility] | | | | | K/cu mm | LABORATORY | | | | | | SERVICES, | | | | | | CORE | | + + + + + + | EOS # | 0.18 | 0.00 - 0.50 | [facility] | | | | | K/cu mm | LABORATORY | | | | | | SERVICES, | | | | | | CORE | | + + + + + + | BASO # | 0.02 | 0.00 - 0.10 | [facility] | | | | | K/cu mm | LABORATORY | | | | | | SERVICES, | | | | | | CORE | | + + + + + + | IG# | 0.01 | 0.00 - 0.03 | [facility] | | | | | K/cu mm | LABORATORY | | | | | | SERVICES, | | | | | | CORE | | + + + + + + + + | Specimen | + + | Blood - Blood | | (substance) | + + + + + | Narrative | Performed At | + + + | Immature Granulocytes (IG) include metamyelocytes, myelocytes | [facility] | | and promyelocytes. Bands are not included in the IG count. Bands are | LABORATORY | | included in the neutrophil count. | SERVICES, CORE | + + + + + + + + | Performing | Address | City/State/Zipcode | Phone Number | | Organization | | | | + + + + + | [facility] | [address] | [place] [address] | | | SERVICES, CORE | [address] | | | + + + + + CYCLIC CITRUL PEPTIDE AB IGG, SERUM (07/22/2017 12:49 PM PDT) + + + + + + | Component | Value | Ref Range | Performed | Pathologist | | | | | At | Signature | + + + + + + | CYCLIC | 4Comment: INTERPRETIVE | 0 - 19 Units | [facility] | | | CITRUL | INFORMATION: Cyclic | | REG UNIV | | | PEPTIDE AB, | Citrullinated Peptide | | PTH - [facility] | | | IGG | Antibody, IgG 19 | | | | | | Units or less | | | | | | ................... | | | | | | Negative 20-39 Units | | | | | | ........................ | | | | | | Weak Positive 40-59 | | | | | | Units | | | | | | ........................ | | | | | | Moderate Positive 60 | | | | | | Units or greater | | | | | | ................ Strong | | | | | | Positive Anti-cyclic | | | | | | citrullinated peptide | | | | | | (anti-CCP), IgG | | | | | | antibodies are present | | | | | | in about 69-83 percent | | | | | | of patients with | | | | | | rheumatoid arthritis | | | | | | (RA) and have | | | | | | specificities of 93-95 | | | | | | percent. These | | | | | | autoantibodies may be | | | | | | present in the | | | | | | preclinical phase of | | | | | | disease, are associated | | | | | | with future RA | | | | | | development, and may | | | | | | predict radiographic | | | | | | joint destruction. | | | | | | Patients with weak | | | | | | positive results should | | | | | | be monitored and testing | | | | | | repeated.Performed by | | | | | | [employer],[address] | | | | | | [address], [facility] | | | | | | [address] | | | | | | [phone][employer]. | | | | | | Horacio nicholson MD, | | | | | | Lab. Director | | | | + + + + + + + + | Specimen | + + | Blood - Blood | | (substance) | + + + + + + + | Performing | Address | City/State/Zipcode | Phone Number | | Organization | | | | + + + + + | [facility] | [address] | [place], [place] | | | UNIV [facility] | | [phone] | | + + + + + COMPLETE METABOLIC SET (NA,K,CL,CO2,BUN,CREAT,GLUC,CA,AST,ALT,BILI TOTAL,ALK PHOS,ALB,PROT TOTAL) (07/22/2017 12:49 PM PDT) + +---------+ + + + | Component | Value | Ref Range | Performed | Pathologist | | | | | At | Signature | + +---------+ + + + | GLUCOSE, | 76 | 70 - 99 mg/dL | [facility] | | | PLASMA | | | LABORATORY | | | (LAB) | | | SERVICES, | | | | | | CORE | | + +---------+ + + + | BUN, PLASMA | 14 | 6 - 20 mg/dL | [facility] | | | (LAB) | | | LABORATORY | | | | | | SERVICES, | | | | | | CORE | | + +---------+ + + + | CREATININE | 0.66 | 0.60 - 1.10 | [facility] | | | PLASMA | | mg/dL | LABORATORY | | | (LAB) | | | SERVICES, | | | | | | CORE | | + +---------+ + + + | EGFR | >60 | >60 mL/min | [facility] | | | - | | | LABORATORY | | | [place] | | | SERVICES, | | | | | | CORE | | + +---------+ + + + | EGFR NON | >60 | >60 mL/min | [facility] | | | -KYRA | | | LABORATORY | | | RICAN | | | SERVICES, | | | | | | CORE | | + +---------+ + + + | SODIUM, | 139 | 136 - 145 | [facility] | | | PLASMA | | mmol/L | LABORATORY | | | (LAB) | | | SERVICES, | | | | | | CORE | | + +---------+ + + + | POTASSIUM, | 3.8 | 3.4 - 5.0 | [facility] | | | PLASMA | | mmol/L | LABORATORY | | | (LAB) | | | SERVICES, | | | | | | CORE | | + +---------+ + + + | CHLORIDE, | 107 | 97 - 108 mmol/L | [facility] | | | PLASMA | | | LABORATORY | | | (LAB) | | | SERVICES, | | | | | | CORE | | + +---------+ + + + | TOTAL CO2, | 25 | 21 - 32 mmol/L | [facility] | | | PLASMA | | | LABORATORY | | | (LAB) | | | SERVICES, | | | | | | CORE | | + +---------+ + + + | CALCIUM, | 8.9 | 8.6 - 10.2 | [facility] | | | PLASMA | | mg/dL | LABORATORY | | | (LAB) | | | SERVICES, | | | | | | CORE | | + +---------+ + + + | CALCIUM(ALB | 8.8 | 8.6 - 10.2 | [facility] | | | CORRECTED) | | mg/dL | LABORATORY | | | | | | SERVICES, | | | | | | CORE | | + +---------+ + + + | BILIRUBIN | 0.8 | 0.3 - 1.2 mg/dL | [facility] | | | TOTAL | | | LABORATORY | | | | | | SERVICES, | | | | | | CORE | | + +---------+ + + + | TOTAL | 8.2 | 6.4 - 8.2 g/dL | [facility] | | | PROTEIN, | | | LABORATORY | | | PLASMA | | | SERVICES, | | | (LAB) | | | CORE | | + +---------+ + + + | ALBUMIN, | 4.1 | 3.5 - 4.7 g/dL | [facility] | | | PLASMA | | | LABORATORY | | | (LAB) | | | SERVICES, | | | | | | CORE | | + +---------+ + + + | ALK PHOS | 62 | 42 - 98 U/L | [facility] | | | | | | LABORATORY | | | | | | SERVICES, | | | | | | CORE | | + +---------+ + + + | AST(SGOT) | 127 (H) | <=41 U/L | [facility] | | | | | | LABORATORY | | | | | | SERVICES, | | | | | | CORE | | + +---------+ + + + | ALT (SGPT) | 371 (H) | <=60 U/L | [facility] | | | | | | LABORATORY | | | | | | SERVICES, | | | | | | CORE | | + +---------+ + + + | ANION GAP | 7 | mmol/L | [facility] | | | | | | LABORATORY | | | | | | SERVICES, | | | | | | CORE | | + +---------+ + + + | ANION | 6 | 4 - 11 mmol/L | [facility] | | | GAP(ALB | | | LABORATORY | | | CORRECTED) | | | SERVICES, | | | | | | CORE | | + +---------+ + + + | POTASSIUM | No Hemo | | [facility] | | | CMNT | | | LABORATORY | | | | | | SERVICES, | | | | | | CORE | | + +---------+ + + + | BILI T CMNT | No Hemo | | [facility] | | | | | | LABORATORY | | | | | | SERVICES, | | | | | | CORE | | + +---------+ + + + | AST CMNT | No Hemo | | [facility] | | | | | | LABORATORY | | | | | | SERVICES, | | | | | | CORE | | + +---------+ + + + + + | Specimen | + + | Blood - Blood | | (substance) | + + + + + | Narrative | Performed At | + + + | Adult glucose reference range change effective 7-12-17. GFR is | [facility] | | estimated using the MDRD equation recommended by the National Kidney | LABORATORY | | Disease Education Program. Estimated GFR Interpretive Information: | SERVICES, CORE | | <60 mL/min/1.73 sq m Chronic Kidney Disease | | | <15 mL/min/1.73 sq m Kidney Failure Estimated | | | GFR greater that 60 mL/min/1.73 sq m is of limited clinical value. | | | The MDRD equation is not valid in the following situations: - | | | Patients under 18 years of age - Severe malnutrition or obesity - | | | Vegetarian diet - Rapidly changing kidney function | | + + + + + + + + | Performing | Address | City/State/Zipcode | Phone Number | | Organization | | | | + + + + + | [facility] | [address] | [place] [address] | | | SERVICES, CORE | [address] | | | + + + + + HEPATITIS B SURFACE AG W/REFLEX CONFIRMATION IF INDETERMINATE RESULTS (07/22/2017 12:49 PM PDT) + + + + + + | Component | Value | Ref Range | Performed | Pathologist | | | | | At | Signature | + + + + + + | HEPATITIS B | | | [facility] | | | SURFACE | | | LABORATORY | | | AG, SERUM | | | SERVICES, | | | | | | CORE | | + + + + + + | HEP B | Not Detected | Not Detected | [facility] | | | SURFACE AG | | | LABORATORY | | | | | | SERVICES, | | | | | | CORE | | + + + + + + + + | Specimen | + + | Blood - Blood | | (substance) | + + + + + + + | Performing | Address | City/State/Zipcode | Phone Number | | Organization | | | | + + + + + | [facility] | [address] | [place] [address] | | | SERVICES, CORE | [address] | | | + + + + + HIV-1,2 AB/HIV-1 P24 AG SCRN, SERUM (07/22/2017 12:49 PM PDT) + + + + + + | Component | Value | Ref Range | Performed | Pathologist | | | | | At | Signature | + + + + + + | HIV-1,2 | Negative | Negative | [facility] | | | AB/HIV-1 | | | LABORATORY | | | P24 AG | | | SERVICES, | | | SCREEN | | | SPECIAL IMM | | | | | | + [place] | | + + + + + + + + | Specimen | + + | Blood - Blood | | (substance) | + + + + + | Narrative | Performed At | + + + | HIV-1 p24 Ag and HIV-1,2 Ab not detected. Test modified from | [facility] | | original telephone answerer's approved specifications. The performance | LABORATORY | | of the CONCRETE POURER HIV Combo test, with or without confirmation, was not | SERVICES, | | tested in pediatric patients less than 2 years of age. NIH | SPECIAL IMM + | | guidelines recommend virologic assays (i.e. HIV 1 VIRAL LOAD) that | [facility] | | directly detect HIV for diagnosis of HIV infection in infants younger | | | than 2 years. | | + + + + + + + + | Performing | Address | City/State/Zipcode | Phone Number | | Organization | | | | + + + + + | [facility] | [address] | [place] [address] | | | SERVICES, SPECIAL | [address] | | | | IMM + [place] | | | | + + + + + documented in this encounter Visit Diagnoses + + | Diagnosis | + + | Chronic hepatitis C without hepatic coma (HCC) | + + documented in this encounter"
--- OUTSIDE RECORDS SUMMARY | ~2020-05-28 | XMS | Encounter Summary ---
Demographics + + + | Address | [address] | | | [place] [address] | + + + | Home Phone | | + + + | Preferred Language | Unknown | + + + | Marital Status | | + + + | Anabaptism Affiliation | Unknown | + + + | Race | White | + + + | Ethnic Group | Not or | + + + Author + + + | Author | [facility] | + + + | Organization | [facility] | + + + | Address | Unknown | + + + | Phone | Unavailable | + + + Support + + +---------+ + | Name | Relationship | Address | Phone | + + +---------+ + | Ortiz Laura | ECON | Unknown | | + + +---------+ + Care Team Providers + +------+ + | Care Oil Well Directional Surveyor Name | Role | Phone | + +------+ + | Donald Smith DO | PCP | | + +------+ + Encounter Details +--------+------+ + + + | Date | Type | Department | Care Team | Description | +--------+------+ + + + | 10/28/ | Lab | Laboratory at [facility] | | Chronic hepatitis C | | 2018 | | [address] | | without hepatic coma | | | | Loop Physician's | | (HCC) | | | | [address], 3rd floor | | | | | | [place], [place] | | | | | | [address] | | | | | | [phone] | | | +--------+------+ + + + [...] CBC AND AUTO DIFF | Routin | 10/28/2017 | Chronic hepatitis | Results for this | | | e | 9:40 AM | C without hepatic | procedure are in the | | | | PST | coma (HCC) | results section. | + +--------+ + + + | CBC, WITH | Routin | 10/28/2017 | Chronic hepatitis | Results for this | | DIFFERENTIAL | e | 9:40 AM | C without hepatic | procedure are in the | | | | PST | coma (HCC) | results section. | + +--------+ + + + | COMPLETE METABOLIC | Routin | 10/28/2017 | Chronic hepatitis | Results for this | | SET | e | 9:40 AM | C without hepatic | procedure are in the | | (NA,K,CL,CO2,BUN,CRE | | PST | coma (HCC) | results section. | | AT,GLUC,CA,AST,ALT,B | | | | | | RIVKA TOTAL,ALK | | | | | | PHOS,ALB,PROT TOTAL) | | | | | + +--------+ + + + | SEDIMENTATION RATE | Routin | 10/28/2017 | Chronic hepatitis | Results for this | | | e | 9:40 AM | C without hepatic | procedure are in the | | | | PST | coma (HCC) | results section. | + +--------+ + + + documented in this encounter Results CBC AND AUTO DIFF (10/28/2017 9:40 AM PST) + + + + + + | Component | Value | Ref Range | Performed | Pathologist | | | | | At | Signature | + + + + + + | WHITE CELL | 4.22 | 3.50 - 10.80 | [facility] | | | COUNT | | K/cu mm | LABORATORY | | | | | | SERVICES, | | | | | | CORE | | + + + + + + | RED CELL | 4.47 | 4.00 - 5.20 | [facility] | | | COUNT | | M/cu mm | LABORATORY | | | | | | SERVICES, | | | | | | CORE | | + + + + + + | HEMOGLOBIN | 13.5 | 12.0 - 16.0 | [facility] | | | | | g/dL | LABORATORY | | | | | | SERVICES, | | | | | | CORE | | + + + + + + | HEMATOCRIT | 39.6 | 36.0 - 46.0 % | [facility] [...] 41.0 | 35.1 - 46.3 fL | [facility] | | | | | | LABORATORY | | | | | | SERVICES, | | | | | | CORE | | + + + + + + | PLATELET | 147 (L) | 150 - 400 K/cu | [facility] | | | COUNT | | mm | LABORATORY | | | | | | SERVICES, | | | | | | CORE | | + + + + + + | MPV | 11.4 | 9.7 - 12.3 fL | [facility] [...] + + + + | NEUTROPHIL | 53.8 | 50.0 - 70.0 % | [facility] | | | % | | | LABORATORY | | | | | | SERVICES, | | | | | | CORE | | + + + + + + | LYMPHOCYTE | 26.8 | 18.0 - 42.0 % | [facility] [...] 0.7 | 0.0 - 2.0 % | [facility] | | | | | | LABORATORY | | | | | | SERVICES, | | | | | | CORE | | + + + + + + | IG% | 0.2Comment: Increased | 0.0 - 1.0 % | [facility] | | | | immature granulocytes | | LABORATORY | | | | (IG) define a left | | SERVICES, | | | | shift. Immature | | CORE | | | | granulocytes (IG) are an | | | | | | automated count of | | | | | | metamyelocytes, | | | | | | myelocytes and | | | | | | promyelocytes. Bands | | | | | | are not included in the | | | | | | IG count. Bands are | | | | | | included in the | | | | | | neutrophil count. | | | | + + + + + + | NEUTROPHIL | 2.27 | 1.80 - 7.70 | [facility] | [...] # | 0.52 | 0.10 - 0.90 | [facility] | | | | | K/cu mm | LABORATORY | | | | | | SERVICES, | | | | | | CORE | | + + + + + + | EOS # | 0.26 | 0.00 - 0.50 | [facility] | | | | | K/cu mm | LABORATORY | | | | | | SERVICES, | | | | | | CORE | | + + + + + + | BASO # | 0.03 | 0.00 - 0.10 | [facility] | | | | | K/cu mm | LABORATORY | | | | | | SERVICES, | | | | | | CORE | | + + + + + + | IG# | 0.01 | 0.00 - 0.10 | [facility] | [...] Performed At | + + + | New reference ranges for IG% and IG# effective 10/10/2017. | [facility] | | Increased immature granulocytes (IG) define a left shift. Immature | LABORATORY | | granulocytes (IG) are an automated count of metamyelocytes, myelocytes | SERVICES, CORE | | and promyelocytes. Bands are not included in the IG count. Bands are | | | included in the neutrophil count. | | + + + + + + + + | Performing | Address | City/State/Zipcode | Phone Number | | Organization | | | | + + + + + | [facility] | [address] | [place] [address] | | | SERVICES, CORE | [address] | | | + + + + + SEDIMENTATION RATE (10/28/2017 9:40 AM PST) + +-------+ + + + | Component | Value | Ref Range | Performed | Pathologist | | | | | At | Signature | + +-------+ + + + | SEDIMENTATI | 10 | 0 - 20 mm/hr | [facility] | | | ON RATE | | | LABORATORY | | | | | | SERVICES, | | | | | | CORE | | + +-------+ + + + + + | Specimen | + + | Blood - Blood | | (substance) | + + + + + | Narrative | Performed At | + + + | Conditions such as cold agglutinins, anemia, hemolysis, icterus or | [facility] | | lipemia may affect sedimentation rate. | LABORATORY | | | SERVICES, CORE | + + + + + + + + | Performing | Address | City/State/Zipcode | Phone Number | | Organization | | | | + + + + + | [facility] | [address] | [place] [address] | | | SERVICES, [place] | [address] | | | + + + + + COMPLETE METABOLIC SET (NA,K,CL,CO2,BUN,CREAT,GLUC,CA,AST,ALT,BILI TOTAL,ALK PHOS,ALB,PROT TOTAL) (10/28/2017 9:40 AM PST) + +---------+ + + + | Component | Value | Ref Range | Performed | Pathologist | | | | | At | Signature | + +---------+ + + + | GLUCOSE, | 89 | 70 - 99 mg/dL | [facility] | | | PLASMA | | | LABORATORY | | | (LAB) | | | SERVICES, | | | | | | CORE | | + +---------+ + + + | BUN, PLASMA | 16 | 6 - 20 mg/dL | [facility] | | | (LAB) | | | LABORATORY | | | | | | SERVICES, | | | | | | CORE | | + +---------+ + + + | CREATININE | 0.73 | 0.60 - 1.10 | [facility] | | | PLASMA | | mg/dL | LABORATORY | | | (LAB) | | | SERVICES, | | | | | | CORE | | + +---------+ + + + | EGFR | >60 | >60 mL/min | [facility] | | | - | | | LABORATORY | | | LUXEMBOURGER | | | SERVICES, | | | [...] +---------+ + + + | POTASSIUM, | 3.9 | 3.4 - 5.0 | [facility] | [...] + + + | TOTAL CO2, | 23 | 21 - 32 mmol/L | [facility] | | | PLASMA | | | LABORATORY | | | (LAB) | | | SERVICES, | | | | | | CORE | | + +---------+ + + + | CALCIUM, | 8.6 | 8.6 - 10.2 | [facility] | [...] +---------+ + + + | BILIRUBIN | 0.4 | 0.3 - 1.2 mg/dL | [facility] | | | TOTAL | | | LABORATORY | | | | | | SERVICES, | | | | | | CORE | | + +---------+ + + + | TOTAL | 7.6 | 6.4 - 8.2 g/dL | [facility] | | | PROTEIN, | | | LABORATORY | | | PLASMA | | | SERVICES, | | | (LAB) | | | CORE | | + +---------+ + + + | ALBUMIN, | 3.8 | 3.5 - 4.7 g/dL | [facility] | | | PLASMA | | | LABORATORY | | | (LAB) | | | SERVICES, | | | | | | CORE | | + +---------+ + + + | ALK PHOS | 46 | 42 - 98 U/L | [facility] | | | | | | LABORATORY | | | | | | SERVICES, | | | | | | CORE | | + +---------+ + + + | AST(SGOT) | 14 | <=41 U/L | [facility] | | | | | | LABORATORY | | | | | | SERVICES, | | | | | | CORE | | + +---------+ + + + | ALT (SGPT) | 20 | <=60 U/L | [facility] | | | | | | LABORATORY | | | | | | SERVICES, | | | | | | CORE | | + +---------+ + + + | ANION GAP | 9 | 4 - 11 mmol/L | [facility] | | | | | | LABORATORY | | | | | | SERVICES, | | | | | | CORE | | + +---------+ + + + | ANION | 9 | 4 - 11 mmol/L | [facility] [...] | + +---------+ + + + | BRANDEN PETERSENNT | No Hemo | | [facility] | [...] | Adult glucose reference range change effective 7-17. GFR is | [facility] | | estimated [...] | + + + + + | [facility] | [address] | [place] [address] | | | SERVICES, CORE | [address] | | | + + + + + documented in this encounter Visit Diagnoses + + | Diagnosis | + + | Chronic hepatitis C without hepatic coma (HCC) | + + documented in this encounter"
--- OUTSIDE RECORDS SUMMARY | ~2020-05-28 | XMS | Encounter Summary ---
Demographics + + + | Address | [address] | | | [place] [address] | + + + | Home Phone | | + + + | Preferred Language | Unknown | + + + | Marital Status | | + + + | Jew Affiliation | Unknown | + + + | Race | White | + + + | Ethnic Group | Not or | + + + Author + + + | Author | [facility] | + + + | Organization | [facility] | + + + | Address | Unknown | + + + | Phone | Unavailable | + + + Support + + +---------+ + | Name | Relationship | Address | Phone | + + +---------+ + | Ortiz Laura | ECON | Unknown | | + + +---------+ + Care Team Providers + +------+ + | Care Canvas Repairer Name | Role | Phone | + +------+ + | Donald Smith DO | PCP | | + +------+ + Reason for Visit + + + | Reason | Comments | + + + | Follow-up visit | | + + + Benefits Check (Routine) +--------+--------+ + + + + | Status | Reason | Specialty | Diagnoses / | Referred By | Referred To | | | | | Procedures | Contact | Contact | +--------+--------+ + + + + | Closed | | Rheumatology | Procedures | Rhm | Rhm Faculty | | | | | [place] | Faculty [facility] | [facility] [address] | | | | | OFFICE/OUTPT | [address] | Pavilion | | | | | | Pavilion | Loop | | | | | VISIT,EST,LE | Loop | Physician's | | | | | [address] [address] [place] | Physician's | Pavilion, 4th | | | | | OFFICE/OUTPT | Pavilion, | Floor | | | | | | 4th Floor | [place], [place] | | | | | VISIT,EST,LE | [place], [place] | [address] | | | | | [place] | [address] | Phone: | | | | | | Phone: | [phone] | | | | | | [phone] | Fax: | | | | | | Fax: | [phone] | | | | | | [phone] | | +--------+--------+ + + + + Encounter Details +--------+---------+ + + + | Date | Type | Department | Care Team | Description | +--------+---------+ + + + | 10/28/ | Office | Rheumatology at | Sissy Peñaloza, | Chronic hepatitis C | | 2018 | Visit | [facility] | [facility] [address] | without hepatic coma | | | | [address] | [address] | (HCC) | | | | Loop Physician's | [place], [place] | | | | | [address], 4th Floor | [address] | | | | | [place], [place] | [phone] | | | | | [address] | | | | | | [phone] | | | +--------+---------+ + + + [...] + + documented as of this encounter Last Filed Vital Signs + + + + + | Vital Sign | Reading | Time Taken | Comments | + + + + + | Blood Pressure | 124/67 | 10/28/2017 9:07 AM | | | | | PST | | + + + + + | Pulse | 78 | 10/28/2017 9:07 AM | | | | | PST | | + + + + + | Temperature | - | - | | + + + + + | Respiratory Rate | - | - | | + + + + + | Oxygen Saturation | - | - | | + + + + + | Inhaled Oxygen | - | - | | | Concentration | | | | + + + + + | Weight | 81.6 kg (180 lb) | 10/28/2017 9:07 AM | | | | | PST | | + + + + + | Height | 170.2 cm (5' 7") | 10/28/2017 9:07 AM | | | | | PST | | + + + + + | Body Mass Index | 28.19 | 10/28/2017 9:07 AM | | | | | PST | | + + + + + documented in this encounter Progress Notes Sunshine Lopez MD - 10/28/2017 9:00 AM PSTI have evaluated the patient with Dr Peñaloza and agree with the history, findings, assessment and plan. Sunshine Lopez M.D. [address] [facility] Mailcode: [id number] [facility] [address] Sissy Wilson MBBS - 10/28/2017 9:00 AM PST RHEUMATOLOGY FOLLOW UP CC: Polyarthritis: Hep C [...] for evaluation of polyarthritis with a past [facility] history of chronic hepatitis C. Fells [...] questions and concerns. JESSICA Dallas RHEUMATOLOGY AT [facility] [address] [facility] Mailcode: [id number] [place] [address] documented in this encounter Plan of Treatment Not on filedocumented as of this encounter Results SEDIMENTATION RATE (10/28/2017 9:40 AM PST) + [...] sedimentation rate. | LABORATORY | | | LATANYA LEWIS | + + + + + + + + | Performing | Address | City/State/Zipcode | Phone Number | | Organization | | | | + + + + + | [facility] | [address] | [place] [address] | | | SERVICES, [place] | [address] | | | + [...] | | | LABORATORY | | | SRI LANKAN | | | SERVICES, | | | [...] | + + + + + | [facility] | [address] | [place] [address] | | | DEBBIE, LATANYA | [address] | | | + + + + + documented in this encounter Visit Diagnoses + + | Diagnosis | + + | Chronic hepatitis C without hepatic coma (HCC) | + + documented in this encounter
--- OUTSIDE RECORDS SUMMARY | ~2020-05-28 | XMS | Encounter Summary ---
Demographics + + + | Address | [address] | | | [place] [address] | + + + | Home Phone | | + + + | Preferred Language | Unknown | + + + | Marital Status | | + + + | Synagogue Affiliation | Unknown | + + + | Race | White | + + + | Ethnic Group | Not or | + + + Author + + + | Author | [facility] | + + + | Organization | [facility] | + + + | Address | Unknown | + + + | Phone | Unavailable | + + + Support + + +---------+ + | Name | Relationship | Address | Phone | + + +---------+ + | Ortiz Laura | ECON | Unknown | | + + +---------+ + Care Team Providers + +------+ + | Care Developer Advocate Name | Role | Phone | + +------+ + | Donald Smith DO | PCP | | + +------+ + Reason for Visit Intake Referral (Routine) +--------+--------+ + + + + | Status | Reason | Specialty | Diagnoses / | Referred By | Referred To | | | | | Procedures | Contact | Contact | +--------+--------+ + + + + | Closed | | Rheumatology | Diagnoses | Luis | [facility] Faculty | | | | | Pain in | Donald Chapin DO | [facility] [address] | | | | | unspecified | [address] | Pavilion | | | | | joint | [address] | Loop | | | | | Procedures | [place], | Physician's | | | | | [place] NEW | [place] [address] | [address], 4th | | | | | PATIENT | Phone: | Floor | | | | | LEVEL V PA | [phone] | [place], [place] | | | | | EST PATIENT | Fax: | [address] | | | | | LEVEL V | [phone] | Phone: | | | | | | | [phone] | | | | | | | Fax: | | | | | | | [phone] | +--------+--------+ + + + + Encounter Details +--------+---------+ + + + | Date | Type | Department | Care Team | Description | +--------+---------+ + + + | 07/22/ | Office | Rheumatology at | ForrestSissy valle, | Chronic hepatitis C | | 2017 | Visit | Phys[facility] | JESSICA [address] | without hepatic coma | | | | [address] | [address] | (HCC) (Primary Dx) | | | | Loop Physician's | [place], [place] | | | | | [address], 4th Floor | [address] | | | | | [place], [place] | [phone] | | | | | [address] | | | | | | [phone] | | | +--------+---------+ + + + [...] this encounter Last Filed Vital Signs + +---------+ + + | Vital Sign | Reading | Time Taken | Comments | + +---------+ + + | Blood Pressure | 98/60 | 07/22/2017 10:18 AM | | | | | PDT | | + +---------+ + + | Pulse | - | - | | + +---------+ + + | Temperature | - | - | | + +---------+ + + | Respiratory Rate | - | - | | + +---------+ + + | Oxygen Saturation | - | - | | + +---------+ + + | Inhaled Oxygen | - | - | | | Concentration | | | | + +---------+ + + | Weight | - | - | | + +---------+ + + | Height | - | - | | + +---------+ + + | Body Mass Index | - | - | | + +---------+ + + documented in this encounter Patient Instructions Patient Instructions Sissy Peñaloza MBBS - 07/22/2017 10:30 AM PDTLabs: Blood tests Please upload pics on My Chart with the rash Ask your PCP to send you to OT/PT I will start you on naproxen 500 mg twice a day and plaquenil 300 mg a day once a day. See me back in 3 months documented in this encounter Progress Notes Sunshine Lopez MD - 07/22/2017 10:30 AM PDTI have evaluated the patient with Dr Peñaloza and agree with the history, findings, assessment and plan. Sunshine Lopez M.D. [address] [facility] Mailcode: [id number] [facility] [place] [address] Sissy Moy MBBS - 07/22/2017 10:30 AM PDT RHEUMATOLOGY NEW PATIENT CONSULT This consultation was requested by: Donald Smith DO [address] [place] [place] [address] fax: [phone] CC: Polyarthritis HPI: This is a 27 y.o. female, here for consultation from Donald Smith DO regarding diagnosis, and possible change in therapy for hepatitis C and polyarthritis. This case of a 27-year-old female. She has a past medical history of chronic hepa titis C genotype 1 diagnosed in April 2015. She follows infectious disease Dr. Eric. She is eligible for [facility]. She was referred for polyarthritis. She's been having aches pains and swelling of her wrists MCPs PIPs and DIPs for the past 1 year. Pain and swelling are progressive predominantly in the morning and morning stiffness i s for about 2 hours. Better when she starts working. Ibuprofen helps the pain to certain ext ent. She works to [employer]. She denies fevers, hair loss, dry eyes dry mouth, no frequent dental infections, uveitis sc leritis, Jac's, chest pain shortness of breath, abdominal pain or blood in stools or uri ne. No DVT or PE. Had 3 miscarriages in the first trimester. Poor sleep due to hand pain. Do es not have inflammatory back pain, psoriasis, dactylitis or enthesitis. No skin tightening or GERD. No skin ulcers. Has left shoulder pain on overhead activities. No other joints hurt in the morning. No fami ly history of any rheumatological conditions. She quit smoking in September 2016. Quit IV drug abuse 6 months ago. Contracted hepatitis C d ue to IV drug abuse. Does not drink alcohol. Of note patient complains to have a rash every day after work which is predominantly on her cheeks and years. Not present on weekends. Although the joint pain is every day. ROS: General: No constitutional symptoms of fatigue, [...] Sig hydroxychloroquine 200 mg oral tablet Take 1 tablet by mouth once daily. naproxen 500 mg oral tablet Take 1 tablet by mouth two times daily. Indications: Pain No current facility-administered medications for this visit. Allergies: Review of patient's allergies indicates not on file. Social History: Samantha reports that she has been smoking E-cigarettes. She has never use d smokeless tobacco. Vaccinations: There is no immunization history on file for this patient. FH: Father has psoriasis Rapid 3 MHAQ: 0 (07/22/17 1200) PAIN LEVEL: 4.5 (07/22/17 1200) GLOBAL ASSESSMENT: 2 (07/22/17 1200) RAPID 3: 2.17 (07/22/17 1200) Exam: Vital Signs: BP 98/60 Pain Score: 8 Gen: Well nourished, well developed, in NAD HEENT: unremarkable Neck: no lymphadenopathy, FROM Lungs: clear to ausculations bilaterally CVS: S1, S2 RRR, no murmurs, rubs or gallops Abd: normal BS, soft, NT, ND Ext: No clubbing, cyanosis, or edema M/S: Right hand: 3rd MCP and PIP synovitis, 2nd PIP swollen, Wrist tender. ROM normal. Left hand: 3rd MCP and PIP synovitis, 2nd PIP swollen, Wrist tender. ROM normal. Left shoulder: Painful arc >120 degrees. GH joint normal. Right shoulder: normal. No nail changes. Skin: No ulcers, no periungual erythema Neuro: normal Labs: Lab Results Component Value Date WBC 3.57 07/22/2017 RBC 4.63 07/22/2017 HCT 41.0 07/22/2017 HB 14.0 07/22/2017 MCV 88.6 07/22/2017 MCHC 34.1 07/22/2017 PLT 135 (L) 07/22/2017 NEUTROPERC 52.6 07/22/2017 LYMPHPERC 31.7 07/22/2017 MONOPERC 9.8 (H) 07/22/2017 EOSPERC 5.0 (H) 07/22/2017 BASOPERC 0.6 07/22/2017 NEUTROPHILCO 1.88 07/22/2017 GLU 76 07/22/2017 BUN 14 07/22/2017 CR 0.66 07/22/2017 TP 8.2 07/22/2017 ALB 4.1 07/22/2017 CA 8.9 07/22/2017 TBILI 0.8 07/22/2017 AP 62 07/22/2017 AST 127 (H) 07/22/2017 NA 139 07/22/2017 K 3.8 07/22/2017 CL 107 07/22/2017 BICARB 25 07/22/2017 ALT 371 (H) 07/22/2017 Impression: This is a 27 y.o. female, here for evaluation of polyarthritis with a [facility] of chronic hepatitis C. 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 On physical exa mination all her hand joints are tender, third MCPs and PIPs have synovitis. Patient does se em to have active arthritis. Her rheumatoid factor checked in the outside lab was normal. He r hepatitis B, HIV are negative. No family history of any autoimmune disorders. Although fat her has a history of psoriasis. No systemic features for lupus or scleroderma. No features f or vasculitis or seronegative arthropathy including enthesitis, uveitis, psoriasis or IBD. Patient does have hepatitis C and oligoarthritis or polyarthritis could be a feature. The differential diagnosis includes the followin. 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 Would start on naproxen 500 twice a day. Would get labs today to monitor renal function. When I see her back in 3 months would repeat a CBC and CMP. Would also start her on hydroxychloroquine 200 mg a day. Needs yearly ophtha lmology exams. Patient understands the risks and benefits of Plaquinil retinal toxicity. Cry oglobulins are negative checked outside labs. Patient does not have any palpable purpura or GRN to suggest cryoglobulinemia. 2. Psoriatic arthritis - because of arthritis includes DIP joints and her family hist ory significant for psoriasis would keep this as a differential but unlikely at this point. No nail changes and no dactylitis or enthesitis. 3. Rheumatoid arthritis - unlikely due to DIP involvement. Would get a CCP. RF is nega tive. I reviewed the patient s questionnaire which included more than 10 review of systems, ans wered all questions raised, and provided counseling and education. Recommendations: Labs: CCP and HIV -last was done in 2016. Would request PCP Dr. Smith to put in a local physical therapy/Occupational therapy consul t for left left shoulder. Urged the patient to upload her photographs of rash on cheeks an ears that she gets after w ork. Would consider to refer to dermatology at next visit. I will start the patient on naproxen 500 mg twice a day and plaquenil 200 mg a day once a d ay for HCV arthritis See me back in 3 months. Case discussed and seen with Dr. Lopez who agrees with the plan. Plan discussed with primary team and patient - we answered all questions and concerns. JESSICA Dallas RHEUMATOLOGY AT [address] Mailcode: [id number] [place] [address] documented in this encounter Plan of Treatment Not on filedocumented as of this encounter Results CYCLIC CITRUL PEPTIDE AB IGG, SERUM (07/22/2017 [...] by | | | | | | [address] | | | | | | Chris Gonzalez, [facility] [place] | | | | | | [address] | | | | | | [phone]. | | | | | | Horacio [...] + + | [facility] | [address] | [place], [place] | | | [facility] | | [address] | | + + + + + [...] | | | LABORATORY | | | SUDANESE | | | SERVICES, | | | [...] + + | [facility] | [address] | [place] [address] | | | SERVICES, CORE | [address] [...] | + + + + + | [facility] | [address] | [place] [address] | | | SERVICES, CORE | [address] [...] modified from | [facility] | | original underwear cutter's approved specifications. The performance | LABORATORY | | of the CONSUMER LOAN SPECIALIST HIV Combo test, with or without confirmation, was not | SERVICES, | | tested in pediatric patients less than 2 years of age. [facility] | SPECIAL IMM + | | guidelines [...] | + + + + + | [facility] | [address] [facility] | [place] [address] | | | SERVICES, SPECIAL | [address] | | | | IMM + COAG | | | | + + + + + documented in this encounter Visit Diagnoses + + | Diagnosis | + + | Chronic hepatitis C without hepatic coma (HCC) - Primary | + + documented in this encounter"
--- OUTSIDE RECORDS SUMMARY | ~2020-05-28 | XMS | Encounter Summary ---
Demographics + + + | Address | [address] | | | [place] [address] | + + + | Home Phone | | + + + | Preferred Language | Unknown | + + + | Marital Status | | + + + | Holiness Affiliation | Unknown | + + + | Race | White | + + + | Ethnic Group | Not or | + + + Author + + + | Author | [facility] | + + + | Organization | [facility] | + + + | Address | Unknown | + + + | Phone | Unavailable | + + + Support + + +---------+ + | Name | Relationship | Address | Phone | + + +---------+ + | Ortiz Laura | ECON | Unknown | | + + +---------+ + Care Team Providers + +------+ + | Care Repair Clerk Name | Role | Phone | + +------+ + PCP | Unavailable | + +------+ + Reason for Visit +--------+ + | Reason | Comments | +--------+ + | Other | Care Everywhere Inquiry | +--------+ + Encounter Details +--------+ + + + + | Date | Type | Department | Care Team | Description | +--------+ + + + + | 01/22/ | Abstract | Rheumatology at | Clinic, | Other (Care | | 2017 | | [facility] | Rheumatology | Everywhere Inquiry) | | | | [address] | | | | | | [address] [facility] | | | | | | [place], [address] Floor | | | | | | [place], [place] | | | | | | [address] | | | | | | [phone] | | | +--------+ + + + + Social History + +-------+ +--------+------+ | Tobacco Use | Types | Packs/Day | Years | Date | | | | | Used | | + +-------+ +--------+------+ | Never Assessed | | | | | + +-------+ +--------+------+ + + + | Sex Assigned at | Date Recorded | | | | + + + | Not on file | | + + + documented as of this encounter Plan of Treatment Not on filedocumented as of this encounter Visit Diagnoses Not on filedocumented in this encounter"
--- OUTSIDE RECORDS SUMMARY | ~2020-05-28 | XMS | Clinical Summary ---
Demographics + + + | Address | [address] | | | [place] [address] | + + + | Home Phone | | + + + | Preferred Language | Unknown | + + + | Marital Status | | + + + | Restorationist Affiliation | Unknown | + + + | Race | White | + + + | Ethnic Group | Not or | + + + Author + + + | Author | [facility] | + + + | Organization | [facility] | + + + | Address | Unknown | + + + | Phone | Unavailable | + + + Support + + +---------+ + | Name | Relationship | Address | Phone | + + +---------+ + | Ortiz Laura | ECON | Unknown | | + + +---------+ + Care Team Providers + +------+ + | Care Process Chemist Name | Role | Phone | + +------+ + | Donald Smith DO | PCP | | + +------+ + Source Comments [facility] is fully live on both [facility] and [facility] Allergies Not on File Medications + + + +---------+------+------+-------+ | Medication | Sig | Dispensed | Refills | Star | End | Statu | | | | | | t | Date | s | | | | | | Date | | | + + + +---------+------+------+-------+ | hydroxychloroquine | Take 1.5 tablets by | 45 | 5 | 02/0 | | Activ | | 200 mg oral | mouth once daily. | tablet | | 8 | | e | | tabletIndications: | | | | 18 | | | | Chronic hepatitis C | | | | | | | | without hepatic coma | | | | | | | | (HCC) | | | | | | | + + + +---------+------+------+-------+ | naproxen 500 mg | Take 0.5 tablets by | 30 | 2 | 02/0 | | Activ | | oral | mouth two times | tablet | | 8/20 | | e | | tabletIndications: | daily. Indications: | | | 18 | | | | pain | Pain | | | | | | + + + +---------+------+------+-------+ Active Problems Not on file Social History + + + +--------+------+ | [...] | | + + + + + Plan of Treatment + + + + + | Health Maintenance | Due Date | Last | Comments | | | | Done | | + + + + + | Pneumococcal | | 02/02/20 | | | vaccination (2 of 3 | 5 | 14 | | | - PCV13) | | | | + + + + + | Influenza (Flu) | | 06/30/20 | | | vaccination (#1) | 0 | 16, | | | | | 07/13/20 | | | | | 15, | | | | | 07/03/20 | | | | | 14, | | | | | Addition | | | | | al | | | | | history | | | | | exists | | + + + + + Results Not on filefrom Last 3 Months Insurance + +--------+ +--------+-------+---------+--------+ | Payer | Benefi | Subscriber | Effect | Phone | Address | Type | | | t Plan | ID | reynaldo | | | | | | / | | Dates | | | | | | Group | | | | | | + +--------+ +--------+-------+---------+--------+ | ROUNDHOUSE WORKER MEDICAID | ROUNDHOUSE WORKER | [id number] | | | | Medica | | | [place]ASTER | | 018-Pr | | | id | | | [place] | | esent | | | | + +--------+ +--------+-------+---------+--------+ + +--------+ +--------+ + + | Guarantor Name | Accoun | Relation to | Date | Phone | Billing Address | | | t Type | Patient | of | | | | | | | | | | + +--------+ +--------+ + + | Samantha Laura V | Person | Self [birth year] | [address] | | | al/Fam | | 1990 | [phone] | [place] [address] | | | deep | | | 4 (Home) | | + +--------+ +--------+ + +
[~2020-05-28 00:46] MED LIST changes: +ONDANSETRON ODT8 MG PO; +TUMS300 MG PO
== END 2020-05-28 02:52 | disposition home or self-care (01) ==
LOC: ED 00:46
DX: N83.201 Unspecified ovarian cyst, right side (principal); Z87.891 Personal history of nicotine dependence
CPT/HCPCS: 76830; 76856; 81001; 84703; 96372; 99284-25; J1885

== ENCOUNTER 2021-04-18 03:56 | Emergency (ER) | payer OTHER ==
[~2021-04-18] VITALS: Ht 170.2 cm; Wt 96.6 kg
[2021-04-18] MEDS ORDERED: LEVONORGESTREL1 EAC2 PO (04:13)
--- NOTE | 2021-04-26 08:57 | EKG ---
[facility] [address] [facility] [place], [place] [address] Signed Normal sinus rhythm Normal ECG No previous ECGs available Confirmed by RAPHAEL GUERIN MD ([id number]) on 04/26/2021 8:57:30 AM Electronically Signed By: RAPHAEL GUERIN MD 04/26/21 0857 PATIENT NAME: FRANCES RIGGINS MARIELA Electrocardiogram DATE OF : 86 PHYSICIAN: RAPHAEL GUERIN MD REPORT #: [id number] REPORT IS CONFIDENTIAL AND NOT TO BE RELEASED WITHOUT AUTHORIZATION
== END 2021-04-18 04:50 | disposition home or self-care (01) ==
LOC: ED 03:56
DX: J06.9 Acute upper respiratory infection, unspecified (principal); Z20.822 Contact with and (suspected) exposure to COVID-19
CPT/HCPCS: 93005; 93010; 99285-25; U0003

== ENCOUNTER 2021-10-07 07:25 | Day surgery (SDC) | payer OTHER ==
[~2021-10-07] VITALS: Ht 170.2 cm; Wt 93.2 kg
--- NOTE | ~2021-10-07 | OR ---
[address] [address] Draft DATE OF OPERATION: 10/07/2021 SURGEON: Kiet Gonzalez MD The patient of Dr. Gonzalez. PREOPERATIVE DIAGNOSES: Abnormal uterine bleeding and endometrial polyp. POSTOPERATIVE DIAGNOSES: Abnormal uterine bleeding and thickened endometrium. PROCEDURE: Hysteroscopy with D and C. ANESTHESIA: MAC. ESTIMATED BLOOD LOSS: 20 mL. SPECIMEN: Endometrial curettings. DRAINS: None. PACKING: None. FINDINGS: Normal vagina and normal cervix. Normal-size uterus sounded to 7 cm. There was a normal-appearing cavity except for thickened but normal-appearing endometrium. No polyps were seen. Both ostia were observed and appeared normal and in correct position. COMPLICATIONS: None. DESCRIPTION OF PROCEDURE: The patient was brought to the operating room and placed in supine position. After PATIENT NAME: FRANCES RIGGINS OPERATIVE REPORT DATE OF : [birth year] REPORT #: [id number] PHYSICIAN: KIET GONZALEZ MD PCP: ADONAY AMEZCUA DO REPORT IS CONFIDENTIAL AND NOT TO BE RELEASED WITHOUT AUTHORIZATION [facility] [address] [place] [address] Draft adequate MAC was obtained, the patient was placed in dorsal lithotomy position, prepped and draped in usual sterile fashion. A weighted speculum was placed in the vagina and the anterior lip of the cervix was grasped with an Allis clamp. The uterine cavity was sounded to 7 cm and then the cervix serially dilated up to a #7 dilator. The hysteroscope was then placed in the endocervical canal and entered the uterine cavity under direct visualization. Sterile saline was used as distending medium. The above findings were noted. The MyoSure Lite was then placed through the hysteroscope and the endometrium sampled in a 360 degree fashion. The specimen was obtained in the upper and lower portion of the uterine cavity with good sampling obtained. The cavity still appeared normal. The hysteroscope was removed. All instruments were removed from the vagina. Good hemostasis was noted. The maximum of 80 mmHg throughout the case and the estimated fluid loss was 410 mL. The patient tolerated the procedure well, went to recovery room in good condition. The sponge and instrument counts were correct at the end of the procedure. Uterine curettings were sent to Pathology for identification. MD SAE Fu/KAVONL /[id number] cc: Adonay Amezcua DO Copies: ADONAY AEMZCUA DO ~ PATIENT NAME: FRANCES RIGGINS MARIELA OPERATIVE REPORT DATE OF : [birth year] REPORT #: [id number] PHYSICIAN: KIET GONZALEZ MD PCP: ADONAY AMEZCUA DO REPORT IS CONFIDENTIAL AND NOT TO BE RELEASED WITHOUT AUTHORIZATION
[~2021-10-07 07:25] MED LIST changes: +AVIANE1 EACH PO; +EPIDIOLEX100 MG/1 M PO; +LEVONORGESTREL1 EAC2 PO
--- NOTE | 2021-10-07 11:01 | NUR ---
10/07/21 1101 SHANE HUIZAR 1042-PATIENT ARRIVES TO PACU ON 10L VIA MASK. PATIENT IS NONAROUSABLE. RESP EVEN AND UNLABORED. ORAL AIRWWAY IN PLACE.
--- NOTE | 2021-10-07 11:16 | NUR ---
1110: PT ARRIVES BACK TO DS RM 3 FROM PACU DROWSY. PT EASILY AROUSES TO VERBAL STIMULATION. PT DENIES ANY NAUSEA AND STATES 5-6/10 CRAMPING PAIN WHEN ASKED. WATER AT BEDSIDE, CALL LIGHT WITHIN REACH.
[2021-10-07] MEDS ORDERED: HYDROCODON-ACE1 EA10 PO (11:56)
[2021-10-07] MEDS ORDERED: MOTRIN IB200 M1 PO (11:57)
--- NOTE | 2021-10-07 12:15 | NUR ---
1210: PT WAKES WHEN THIS RN ENTERS THE ROOM. DROWSY BUT HOLDS APPROPRIATE CONVERSATION. VSS, RESP EVEN AND UNLABORED. REPORTING INCREASING PAIN LEVEL, 7/10, CRAMPING. ENCD TO EAT SOME CRACKERS AND SIP TRINH WATER PRIOR TO PAIN RX ADMINISTRATION. PT VOICES UNDERSTANDING. SCDS IN PLACE, MINIMAL DRAINAGE NOTED ON PERIPAD. NO FURTHER NEEDS VOICED, CALL LIGHT WITHIN REACH
--- NOTE | 2021-10-07 12:35 | NUR ---
1226: PT LOWELL CRACKERS AND ICE WATER WELL, DENIES NAUSEA. PAIN RX ADMINISTERED ORDERED. IV CONVERTED TO SL. PT DANGLES AT THE BEDSIDE, DENIES DIZZNESS AND SOB. AMBULATES TO BR WITH STANDBY ASSIST FROM THIS RN. SUCCESSFUL POSTOP VOID, 200MLS. BACK TO ROOM 3 AND DRESSES SELF INDEPENDENTLY. CALL LIGHT WITHIN REACH
--- NOTE | 2021-10-07 12:54 | NUR ---
PT FULLY DRESSED AND RESTING IN BED. PT RATES PAIN 3/10 AND TOLERABLE, DENIES ANY NAUSEA. DC INSTRUCTIONS PRESENTED VERBALLY AND WRITTEN, PT VERBALIZES AN UNDERSTANDING. PT AWARE OF PAIN PRESCRIPTION IN DC FOLDER AND INSTRUCTED TO DROP OFF AT PHARMACY. PT CONTACTS STEP MOTHER FOR SAFE RIDE HOME. 1310: PT DC FROM DS RM 3 VIA WC TO STEP MOTHER WAITING AT MAIN HOSPITAL ENTRANCE TO HOME.
--- NOTE | 2021-10-08 15:51 | PATH ---
[facility] [address] [place], [place] [address] Signed SPECIMEN(S): A ENDOMETRIAL CURETTINGS SPECIMEN SOURCE: A. ENDOMETRIAL CURETTINGS CLINICAL HISTORY: Abnormal vaginal bleeding. Hysteroscopy DC. FINAL PATHOLOGIC DIAGNOSIS: Endometrium, curettage: - Inactive endometrium with foci of progestogen effect. - Fragments of myometrium with no histopathologic abnormality. - Negative for hyperplasia or malignancy. NAL:caw:C2NR MICROSCOPIC EXAMINATION: Histologic sections of all submitted blocks are examined by light microscopy. These findings, together with the gross examination, support the pathologic diagnosis. GROSS DESCRIPTION: The specimen, labeled "JT, A," and designated on the requisition "endometrial curettings," is received in formalin and consists of muller soft tissue fragments with possible mucus and clot material measuring 2.7 x 2.3 x 0.4 cm in aggregate. Specimen is filtered and entirely submitted in cassette (A1). AT (under the direct supervision of a pathologist) The Gross Description was prepared using a voice recognition system. The report was reviewed for accuracy; however, sound-alike word errors, addition and/or deletions may occur. If there is any question about this report, please contact Client Services. PERFORMING LABORATORY: The technical component was performed by [employer], [address] [place] [address] (Director Of Financial Planning: Lizbet Sewell MD; CLIA# [id number]). [facility] [address] [address] (CLIA# [id number]). Diagnostician: Suni Herrera MD Pathologist PATIENT NAME: FRANCES RIGGINS PATHOLOGY DATE OF : [birth year] REPORT #: [id number] PHYSICIAN: SHALONDAYTE PATHOLOGY PCP: BRIAN AMEZCUA DO REPORT IS CONFIDENTIAL AND NOT TO BE RELEASED WITHOUT AUTHORIZATION [address] [address] Signed Electronically Signed 10/08/2021 Copies: ~ PATIENT NAME: FRANCES RIGGINS PATHOLOGY DATE OF : [birth year] REPORT #: [id number] PHYSICIAN: STELLA PATHOLOGY PCP: BRIAN AMEZCUA DO REPORT IS CONFIDENTIAL AND NOT TO BE RELEASED WITHOUT AUTHORIZATION
== END 2021-10-07 13:10 | disposition home or self-care (01) ==
LOC: OPS 07:25 → DS 07:25 → OPS 08:30
PROVIDERS: ATTEND General Practice
PROC: 0UDB8ZX Extraction of Endometrium, Via Natural or Artificial Opening Endoscopic, Diagnostic (ICD-10-PCS; principal; 2021-10-07 08:30)
DX: N93.9 Abnormal uterine and vaginal bleeding, unspecified (principal); R93.89 Abnormal findings on diagnostic imaging of other specified body structures; Z87.891 Personal history of nicotine dependence
CPT/HCPCS: J1100; J1885; J2250; J2405; J2704; J2765; J3010; J7121

== ENCOUNTER 2022-08-15 12:52 | Emergency (ER) | payer OTHER ==
[~2022-08-15] VITALS: Ht 167.6 cm; Wt 81.5 kg
[~2022-08-15 12:52] MED LIST changes: +HYDROCODON-ACE1 EA10 PO; +METRONIDAZOLE500 MG PO; +MOTRIN IB200 M1 PO
--- OUTSIDE RECORDS SUMMARY | 2022-08-15 12:54 | XMS ---
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 Brisa VISIT COUNT (12 MO.) 3 [facility] TOTAL 3 NOTE: Visits indicate total known visits. ED/UCC VISIT TRACKING (12 MO.) 08/15/2022 12:53 [facility] [place] TYPE: Emergency COMPLAINT: - COLD SYMPTOMS 08/14/2022 20:41 [facility] [place] TYPE: Emergency COMPLAINT: - FLU SYMPTOMS 03/22/2022 15:50 [facility] [place] TYPE: Emergency COMPLAINT: - IRRITAION IN VAGINAL AREA DIAGNOSES: - Acute vaginitis INPATIENT VISIT TRACKING (12 MO.) No inpatient visits to display in this time frame [email or web address]
== END 2022-08-15 15:28 | disposition home or self-care (01) ==
LOC: ED 12:52
DX: J10.1 Influenza due to other identified influenza virus with other respiratory manifestations (principal); Z20.822 Contact with and (suspected) exposure to COVID-19; Z87.442 Personal history of urinary calculi
CPT/HCPCS: 87502; 99283; C9803; U0003

== ENCOUNTER 2024-03-15 05:37 | Day surgery (SDC) | payer BC ==
[2024-03-09 16:13] VITALS: BP 107/75
[~2024-03-15] VITALS: Ht 170.2 cm; Wt 90.9 kg
--- NOTE | ~2024-03-15 | OR ---
[address] [id number] [place], [place] [address] Draft DATE OF OPERATION: 03/15/2024 SURGEON: Carolina Garza DO PREOPERATIVE DIAGNOSES: 1. Adenomyosis. 2. Dysmenorrhea. POSTOPERATIVE DIAGNOSES: 1. Adenomyosis. 2. Dysmenorrhea. 3. Severe pelvic and abdominal adhesions. PROCEDURES PERFORMED: 1. Total laparoscopic hysterectomy. 2. Extensive lysis of adhesions greater than 60 minutes. 3. Cystoscopy. FINANCIAL SERVICES PROFESSIONAL: Elizabeth Lerma MD. ANESTHESIA: General. ESTIMATED BLOOD LOSS: 150 mL. SPECIMENS: Uterus and cervix. DRAINS: Schultz to gravity. FINDINGS: Normal external genitalia with normal clitoris, urethral meatus, bilateral Kaser's, Bartholin's glands. On laparoscopy, significant abdominal adhesions with omentum scarred most of the anterior abdominal wall surface. In the pelvis, extensive complicated adhesions with the anterior surface of the uterus completely adherent to the anterior pelvic wall, omentum and bladder requiring extensive and complicated lysis of adhesions much greater than one hour. Normal ovaries noted and fallopian tubes had been PATIENT NAME: FRANCES TODD OPERATIVE REPORT DATE OF : [birth year] REPORT #: [id number] PHYSICIAN: CAROLINA GARZA DO (JD) PCP: BRIAN AMEZCUA DO REPORT IS CONFIDENTIAL AND NOT TO BE RELEASED WITHOUT AUTHORIZATION [address] [address] Draft previously excised. Oozing from multiple sites across the extensive lysis of adhesions that were made hemostatic. The patient did receive tranexamic acid 1 g intraoperatively. At the end of the procedure, excellent hemostasis, excellent apical support and druze of normal anatomy completed. On cystoscopy, normal bladder with bilateral ureteral jets. COMPLICATIONS: None. INDICATIONS: Ms. Todd is a very pleasant 33-year-old female with dysmenorrhea, adenomyosis, and a history of complicated pelvic surgery with B-Huynh and uterine mattress sutures required for hemorrhage in the past. The patient was consented for total laparoscopic hysterectomy, bilateral salpingectomy of any remaining fallopian tubes, and cystoscopy. Risks, benefits, and alternatives were discussed in detail with the patient. The patient understands and wished to proceed with the procedure. DESCRIPTION OF PROCEDURE: The patient was taken to the OR where a time-out was performed to confirm correct patient and correct procedure. General anesthesia was adequately established. The patient was prepped and draped in dorsal lithotomy position with her feet in Yellofin stirrups. ICPs were on and running and no preoperative heparin was indicated but the patient did receive Ancef 2 g preoperatively per SCIP protocol. A Schultz catheter was inserted and weighted speculum was placed in the vagina. The anterior lip of the cervix was grasped with an Allis clamp and the cervix was gently dilated using Hegar dilators. A VCare uterine manipulator was placed without difficulty and the surgeon's gloves were changed and attention turned to the abdomen. Prior operative scar just above her umbilicus was infiltrated with 0.25% Marcaine with epinephrine and opened with an 11 blade. The fascia was then grasped with hemostats, elevated, entered sharply. The peritoneum was entered bluntly. Stay sutures of 0 Vicryl were placed in the superior and inferior edge of the fascial incision. Misael operative port was placed after palpation of extensive omental adhesions. A 5 mm assist port was placed in the right upper quadrant at a prior laparoscopic scar under direct visualization without complication. An 8 mm expanding port was placed in the right lower quadrant under direct visualization. The left lower quadrant was unable to be visualized at this point due to extensive adhesions. Omental adhesions were noted obscuring the vast majority of the anterior abdominal wall. These were very carefully taken down with LigaSure device with excellent hemostasis appreciated. Once omental adhesions were taken down from the anterior abdominal wall, a 5 mm assist port was placed in the left lower quadrant and attention was turned to the pelvis. Normal ovaries bilaterally were noted. The omental adhesions were contiguous with the anterior abdominal wall to the anterior surface of the uterus above the level of the round ligament and across the entire uterine surface PATIENT NAME: FRANCES TODD OPERATIVE REPORT DATE OF : [birth year] REPORT #: [id number] PHYSICIAN: CAROLINA GARZA DO (JD) PCP: BRIAN AMEZCUA DO REPORT IS CONFIDENTIAL AND NOT TO BE RELEASED WITHOUT AUTHORIZATION [address] [address] Draft involving the bladder. The cul-de-sac was clear and bilateral ureters were able to be identified along their entire course. It was felt that laparoscopic hysterectomy would be able to be accomplished despite severe adhesions. Decision was made to proceed. The left uteroovarian ligament was fulgurated and divided with excellent hemostasis. The right utero-ovarian ligament was fulgurated and divided with excellent hemostasis. The left round ligament was fulgurated, divided, and the posterior leaf of the broad ligament was dissected from the midportion around to the uterosacral ligament across the posterior edge of the vaginal cuff. The process was repeated on the right with division of the round ligament and division of the posterior edge of the colpotomy. Attention was then turned to lysis of adhesions. The omental adhesions were very carefully dissected and the omentum was able to be transected and released to the abdomen. This was performed after the bladder was backfilled with 500 mL of sterile milk to help establish the edge of the bladder. Blunt dissection was used to develop somewhat of a plane between the uterus and the bladder and careful continued dissection was performed eventually releasing the bladder adhesions from the anterior surface of the abdomen. At this point, the uterine vessels were skeletonized, identified, fulgurated with excellent hemostasis bilaterally. Colpotomy was then able to be performed using Sonicision device with excellent hemostasis. The pelvis was irrigated and the uterus and cervix were delivered through the vagina. Pneumoperitoneum was reestablished by placing a wet lap inside of a glove and stuffing this inside the vagina. A small amount of oozing was noted from the left edge of the colpotomy and this was made hemostatic with bipolar cautery. Colpotomy was then repaired using V-Loc suture with an Endostitch device with excellent hemostasis and apical support after careful attention to incorporate the uterosacral ligaments bilaterally and the vaginal epithelium with each bite. The pelvis was irrigated. Multiple oozing sites of the omentum and adhesion dissection planes were noted and these were carefully fulgurated with either monopolar or bipolar cautery as appropriate. The pelvis and abdomen were irrigated copiously multiple times. The patient did receive 1 g of tranexamic acid at this point. Once hemostasis was appreciated, Tisseel was applied laparoscopically to the dissection planes with excellent hemostasis appreciated. The pneumoperitoneum was reduced. Supraumbilical fascia was reapproximated with 0 Vicryl and trocar sites were repaired using 3-0 Vicryl Rapide. Attention was then turned to cystoscopy. The Schultz catheter was removed and 70-degree cystoscope was advanced under direct visualization through the urethral meatus and into the bladder. Normal bladder dome. Bilateral ureteral jets were appreciated. The bladder was drained. Schultz catheter was reinserted. The patient was taken to PACU in good and stable condition. Sponge, needle and instrument counts were correct x2 at the end of the procedure. Dr. Lerma was present and participated in all portions of the procedure. PATIENT NAME: FRANCES TODD OPERATIVE REPORT DATE OF : [birth year] REPORT #: [id number] PHYSICIAN: CAROLINA GARZA DO (JD) PCP: BRIAN AMEZCUA DO REPORT IS CONFIDENTIAL AND NOT TO BE RELEASED WITHOUT AUTHORIZATION [facility] [address] [place] [address] Draft Carolina Garza DO JDW/MODL /[id number] Copies: ~ PATIENT NAME: FRANCES TODD OPERATIVE REPORT DATE OF : [birth year] REPORT #: [id number] PHYSICIAN: CAROLINA GARZA DO (JD) PCP: BRIAN AMEZCUA DO REPORT IS CONFIDENTIAL AND NOT TO BE RELEASED WITHOUT AUTHORIZATION
[~2024-03-15 05:37] MED LIST changes: +LACTATED RINGER'S 1,000 ML IV SCH; +LOMAIRA8 MG PO; +TOPIRAMATE25 MG PO
[2024-03-15 06:04] VITALS: BP 114/78
[2024-03-15] MEDS ORDERED: CEFAZOLIN SODIUM 2 GM/20 ML SYR IV SCH (07:00)
[2024-03-15] MEDS ORDERED: LIDOCAINE HCL 1% 5 ML SDV INJ ONE (07:00)
[2024-03-15] MEDS ORDERED: IBLOOD GLUCOSE TEST STRIP 1 EA TEST VI PRN ×2 (07:00→08:15)
[2024-03-15] MEDS ORDERED: HYDROmorphone HCL 2 MG/ML VIAL ONE (07:06)
[2024-03-15] MEDS ORDERED: fentaNYL citrate 100 MCG/2 ML VIAL ONE (07:06)
[2024-03-15] MEDS ORDERED: KETAMINE in NS 50 MG/5 ML SYR ONE (07:06)
[2024-03-15] MEDS ORDERED: MAGNESIUM SULFATE 1 GM/2 ML VIAL ONE ×2 (07:07→08:33)
[2024-03-15] MEDS ORDERED: ACETAMINOPHEN 1,000 MG/100 ML VIAL ONE (07:07)
[2024-03-15] MEDS ORDERED: DEXAMETHASONE SOD PHOS 4 MG/ML VIAL ONE (07:07)
[2024-03-15] MEDS ORDERED: dexmedeTOMIDine HCl 200 MCG/2 ML VIAL ONE (07:07)
[2024-03-15] MEDS ORDERED: LIDOCAINE HCL 2% 5 ML SDV ONE ×2 (07:07→08:33)
[2024-03-15] MEDS ORDERED: propofoL 200 MG/20 ML VIAL ONE (07:07)
[2024-03-15] MEDS ORDERED: ROCURONIUM BROMIDE 50 MG/5 ML SYR ONE ×2 (07:07→08:30)
[2024-03-15] MEDS ORDERED: ondansetron HCL 4 MG/2 ML VIAL ONE (07:07)
[2024-03-15] MEDS ORDERED: SODIUM CHLORIDE 0.9% 40 ML IV ONE ×2 (07:07→08:33)
[2024-03-15] MEDS ORDERED: droPERidol 5 MG/2 ML VIAL ONE (07:17)
[2024-03-15] MEDS ORDERED: ePHEDrine sulfate 50 MG/ML AMP ONE (07:35)
[2024-03-15] MEDS ORDERED: KETOROLAC TROMETHAMINE 30 MG/ML VIAL ONE (07:58)
[2024-03-15] MEDS ORDERED: ondansetron HCL 4 MG/2 ML VIAL IV PRN ×2 (08:15→11:15)
[2024-03-15] MEDS ORDERED: NALOXONE HCL 0.4 MG SYR IV PRN ×2 (08:15→11:15)
[2024-03-15] MEDS ORDERED: fentaNYL citrate 50 MCG/ML SDV IV PRN (08:15)
[2024-03-15] MEDS ORDERED: KETOROLAC TROMETHAMINE 30 MG/ML VIAL IV PRN (08:15)
[2024-03-15] MEDS ORDERED: FLUORESCEIN SODIUM 500 MG/5 ML ML ONE (10:02)
[2024-03-15] MEDS ORDERED: DESFLURANE 240 ML BTL ONE (10:18)
[2024-03-15] MEDS ORDERED: SUGAMMADEX SODIUM 200 MG/2 ML ML ONE (10:19)
[2024-03-15] MEDS ORDERED: TRANEXAMIC ACID 1,000 MG/10 ML AMP ONE (10:25)
--- NOTE | 2024-03-15 11:14 | NUR ---
03/15/24 1114 Samia Pfeiffer 1104-PATIENT ARRIVED TO PACU ON RA RR EVEN. REACTIVE TO VERBAL STIMULI EYES CLOSED MOVING ARMS REPORTS "COLD" WARM BLANKETS APPLIED. 4 LAP SITES TO ABDOMEN CDI. JEAN BAPTISTE CATHETER DRAINING YELLOW URINE. PATIENT REPORTS NAUSEA WILL MEDICATE PER EMAR. DENIES PAIN 1114-PATIENT RESTING WITH EYES CLOSED. IVF INFUSING. RA 98% RR EVEN.
[2024-03-15] MEDS ORDERED: SIMETHICONE 125 MG TABLET CHEWABLE PO PRN (11:15)
[2024-03-15] MEDS ORDERED: METOCLOPRAMIDE HCL 10 MG/2 ML SDV IV PRN (11:15)
[2024-03-15] MEDS ORDERED: OXYCODONE/APAP 5/325 TAB PO PRN (11:15)
[2024-03-15] MEDS ORDERED: MAGNESIUM HYDROXIDE/AL HYDROX 30 ML CUP PO PRN (11:15)
[2024-03-15] MEDS ORDERED: FAMOTIDINE 20 MG/ 2 ML VIAL IV PRN (11:15)
[2024-03-15] MEDS ORDERED: MORPHINE SULFATE 10 MG/ML VIAL IV PRN (11:15)
[2024-03-15 11:42] VITALS: BP 99/61
--- NOTE | 2024-03-15 11:54 | NUR ---
ICED WATER GIVEN. ETOH PAD GIVEN TO ASSIST WITH NAUSEA. NOHEMY HUGGER ON COOL. PATIENT HAS SCANT AMOUNT OF EMESIS. SHE REPORTS FEELING "BETTER" AFTER EMESIS. CALL LIGHT IS WITHIN REACH. PATIENT'S MOTHER IS AT THE BEDSIDE. JEAN BAPTISTE CATHETER BALLOON IS DEFLATED FOR 10 ML AND JEAN BAPTISTE IS DC WNL.
[2024-03-15] MEDS ORDERED: MOTRIN IB200 MG PO (12:06)
[2024-03-15] MEDS ORDERED: HYDROCODON-ACE1 EA10 PO (12:06)
--- NOTE | 2024-03-15 12:30 | NUR ---
1230-PT C/O NAUSEA AND VOMITING. NAUSEA MEDICTION GIVEN PER EMAR.
[2024-03-15] MEDS ORDERED: HYDROmorphone HCL 1 MG/ML SYR ONE (12:42)
[2024-03-15 12:45] VITALS: BP 94/64
--- NOTE | 2024-03-15 12:46 | NUR ---
1246-PT IS LAYING IN BED AWAKE. RESP EVEN AND UNALBORED. RATES PAIN /. PT HAVING SOME NASUEA. TOLERABLE AT THIS TIME. PT HAS EMISIS BAG. PT TAKING SIPS OF WATER. CALL LIGHT WITHIN REACH. FAMILY AT BEDSIDE.
--- NOTE | 2024-03-15 12:53 | NUR ---
1250-DISCUSSED PAIN MEDICATION WITH . SAHIL CANALES 1MG NOW. 1253-PAIN MEDICATION GIVEN PER EMAR.
--- NOTE | 2024-03-15 13:24 | NUR ---
PATIENT PUSHES HER CALL LIGHT AND ASKS TO USE THE BATHROOM. I ASSIST HER WITH AMBULATING TO THE BATHROOM. SHE DOES REPORT BEING "A LITTLE BIT DIZZY." PATIENT IS ABLE TO VOID 100 ML, BRIGHT YELLOW URINE AND ASKS "CAN I GO HOME?" PATIENT IS GETTING DRESSED IN THE PRESENCE OF HER FAMILY. SHE IS ENCOURAGED TO GO SLOW AND TO PUSH HER CALL LIGHT IF SHE NEEDS HELP. SHE VERBALIZES UNDERSTANDING.
--- NOTE | 2024-03-15 13:32 | NUR ---
1332-PT MOVES SELF TO BEDSIDE. PT HAIVNG NAUSEA AND VOMITING. PT EXPRESSES SHE WANTS TO GO HOME. 1336-PHONE CALL TO DR. RIDDLE WITH PT UPDATE. ORDERS FOR ZOFRAN 4MG IV NOW AND MAY GO HOME. WILL NEED TO COME BACK IF NOT BETTER.
--- NOTE | 2024-03-15 17:14 | NUR ---
LE 1340-PT UPDATED ON DR WARDS ORDERS. PT VERBALIZED UNDERSTNADING. LE 1345-WENT OVER DISCHARGE INSTRUCTIONS WITH PT. ALL QUESTIONS ANSWERED. PT. AMBULATES TO WHEELCHAIR. PT HAS EMESIS BAG. RIDE PROVIDED TO FRONT OF HOSPITAL WHERE FAMILY WAS WAITING WITH THE CAR.
--- NOTE | 2024-03-21 16:36 | PATH ---
[facility] [address], [place] [address] Signed SPECIMEN(S): A UTERUS, CERVIX, POSSIBLE FALLOPIAN TUBE SPECIMEN SOURCE: A. UTERUS, CERVIX, POSSIBLE FALLOPIAN TUBE CLINICAL HISTORY: N80.03 Adenomyosis of the uterus. N93.9 Abnormal uterine and vaginal bleeding. FINAL PATHOLOGIC DIAGNOSIS: Uterus with fallopian tube, hysterectomy with salpingectomy: - Inactive endometrium; no hyperplasia or neoplasia identified - Leiomyoma - Cervix with no significant pathologic changes - Fallopian tube with no significant pathologic changes BRP MICROSCOPIC EXAMINATION: Histologic sections of all submitted blocks are examined by light microscopy. These findings, together with the gross examination, support the pathologic diagnosis. GROSS DESCRIPTION: The specimen, labeled and designated "Luis Antonio Todd, " and designated on the requisition "uterus, cervix, possible fallopian tube," is received in formalin and consists of 77 gram uterus and cervix with a tubular structure. The uterus is 5.5 x 3.7 x 7.9 cm (cornu-cornu x anterior-posterior x fundus-ectocervix). The serosal surface is pink with adherent red membranous tissue and one defect that involves the fundus and anterior aspect measuring 4.6 x 2.7 x 1.4 cm, exposing the underlying endometrial cavity. The ectocervical mucosa is pale pink and smooth. Serial sectioning of the cervix fails to demonstrate any gross abnormalities. The triangular endometrial cavity is lined by a red shaggy endometrium that has an average thickness of 0.2 cm. Sectioning through the uterus reveals a pink moderately trabeculated myometrium with one white-muller well-circumscribed intramural nodule that is 0.3 cm in greatest dimension. Separate within the container is a 2.7 x 1.4 cm violaceous and tubular structure with attached red membranous tissue. No fimbriae are grossly identified. Cut sections reveal a pinpoint lumen. [employer] sections are submitted in four cassettes. PATIENT NAME: FRANCES TODD PATHOLOGY DATE OF : 86 REPORT #: [id number] PHYSICIAN: KATHERINE PATHOLOGY PCP: BRIAN AMEZCUA DO REPORT IS CONFIDENTIAL AND NOT TO BE RELEASED WITHOUT AUTHORIZATION [facility] [address], [place] [address] Signed Cassette Summary: (A1) tubular structure, entirely submitted (A2) cervix (A3) uterine wall (A4) intramural nodule and uterine wall with a defect FB (under the direct supervision of a pathologist) The Gross Description was prepared using a voice recognition system. The report was reviewed for accuracy; however, sound-alike word errors, addition and/or deletions may occur. If there is any question about this report, please contact Client Services. ADDITIONAL NOTES: Immunohistochemical and/or in situ hybridization studies if performed in this case included appropriate positive controls that reacted as expected. This test was developed and its performance characteristics determined by [facility]. It has not been cleared or approved by the U.S. Food and Drug Administration. The FDA has determined that such clearance or approval is not necessary. This test is used for clinical purposes. It should not be regarded as investigational or for research. [facility] is certified under the Clinical Laboratory Improvement Amendments of 1988 (CLIA) as qualified to perform high complexity clinical laboratory testing. PERFORMING LABORATORY: Technical component was performed by [facility], [address] [place] [id number] (CLIA# [id number]). Professional interpretation was performed by [facility] - [address] [id number] Diagnostician: Viktor Mart MD Pathologist Electronically Signed 03/21/2024 Copies: ~ PATIENT NAME: FRANCES TODD [facility] PATHOLOGY DATE OF : 86 REPORT #: [id number] PHYSICIAN: KATHERINE WOMACK PCP: BRIAN AMEZCUA DO REPORT IS CONFIDENTIAL AND NOT TO BE RELEASED WITHOUT AUTHORIZATION
== END 2024-03-15 13:45 | disposition home or self-care (01) ==
LOC: DS 05:37 → OPS 05:37 → DS 07:30 → OPS 07:30
PROVIDERS: ATTEND Obstetrics & Gynecology
PROC: 0UT94ZZ Resection of Uterus, Percutaneous Endoscopic Approach (ICD-10-PCS; principal; 2024-03-15 07:30)
PROC: 0DNU4ZZ Release Omentum, Percutaneous Endoscopic Approach (ICD-10-PCS; 2024-03-15 07:30)
DX: N80.03 Adenomyosis of the uterus (principal); K66.0 Peritoneal adhesions (postprocedural) (postinfection); N94.6 Dysmenorrhea, unspecified; D25.9 Leiomyoma of uterus, unspecified
CPT/HCPCS: 00944; J0131; J0690; J1100; J1170; J1790; J1885; J2001; J2405; J2704; J2765; J3010; J3475; J3490; J7121